=== PATIENT | male | born 1990 | race Caucasian/White ===

== ENCOUNTER 2023-07-15 07:51 | Outpatient (CLI) | payer OTHER, SELFPAY ==
--- NOTE | ~2023-07-15 | US_ITS ---
US abdomen limited DATE: 07/15/2023 08:18 INDICATION: Elevated liver function tests TECHNIQUE: Real-time imaging of the liver, pancreas, gallbladder COMPARISON: None FINDINGS: No hepatic space-occupying mass lesion. Normal hepatopedal portal venous flow direction. The pancreas is not well demonstrated. No gallstones or gallbladder wall thickening. Negative sonographic Guajardo's sign. The common bile hugo t measures 3.9 mm, normal. IMPRESSION: No significant abnormality the liver or gallbladder Pancreas is not well demonstrated Reviewed, dictated and finalized at Location A. Reviewed, dictated and finalized at location A.
== END 2023-07-15 07:52 ==
PROVIDERS: PCP Internal Medicine; Visit Provider Internal Medicine
DX: Z78.9 Other specified health status (principal); R94.5 Abnormal results of liver function studies
CPT/HCPCS: 76705

== ENCOUNTER 2024-11-17 13:49 | Emergency (ER) | payer OTHER, SELFPAY ==
--- OUTSIDE RECORDS SUMMARY | 2024-05-03 05:00 | XMS_ITS ---
Author Organization [facility] Address [facility] [address] Care Team Providers Care Superintendent Board Mill Name Role Phone Adela Michelle MD Primary Care Provider Maye Sanchez Unavailable [phone] REASON FOR VISIT left message to cancel appt 05/01/2024 Social History Sex Assigned At : Social History Observation Description Sex Assigned At Male Encounters Encounter Location Date Provider Diagnosis [facility] [employer] [place] [address] [facility] [address] [place] [address] 05/03/2024 Maye Bartlett Plan Of Treatment No Information Progress Notes * MIGUEL HAYES PDOB:1990 (33 yo M)Acc No.[id number]:05/03/2024 Patient: MIGUEL DALE Provider: JAUN BEAVERS :1990 A ge:33 Y S ex:Male Date:05/03/2024 [facility] Pcp:Adela Michelle MD Subjective: * Chief Complaints: * L eft message to cancel appt 05/01/2024 * Electronic signature of JAUN Flynn on 11/17/2024 at 01:51 PM CDT Sign off status: Pending * Provider: JAUN BEAVERS Date: 0 05/03/2024 Generated for Zee plummer/Jaime/Jordonitting on: 0 11/17/2024 01:51 PM CDT
--- OUTSIDE RECORDS SUMMARY | 2024-11-17 13:51 | XMS_ITS | Encounter Summary ---
Author Organization [facility] Address [facility] [place] [address] Care Team Providers Care Search Engine Optimization Analyst Name Role Phone Adela Michelle MD Primary Care Provider [phone] Encounter Details Date Type Department Care Team (Latest Contact Info) Description 07/11/2023 MyChart Message Enc [facility] Medical Group Multispecialty Care - [place] [address] [address] [place] [address] Adela Michelle MD [address] [place] [address] [address] [place], [place] [id number] Refill on wixela 500mlg Social History Tobacco Use Types Packs/Day Years Used Date Smoking Tobacco: Former Cigarettes 2 - 2011 Electronic Cigarettes Salvatore t: 07/20/2020 Smokeless Tobacco: Never Comments:Social smoker in [facility], pt stopped e-cigs July 2020; counseled by Dr Michelle Alcohol Use Standard Drinks/Week Comments Yes 16.7 (1 standard drink = 0.6 oz pure alcohol) PHQ-2 Answer Date Recorded Patient Health Questionnaire-2 Score 3 06/30/2023 Sex and Gender Information Value Date Recorded Sex Assigned at Male 06/14/2024 10:33 AM CDT Legal Sex Male 7:46 PM CDT Gender Identity Male 06/14/2024 10:33 AM CDT Sexual Orientation Straight 07/26/2024 1: 43 PM CDT documented as of this encounter Plan of Treatment Upcoming Encounters Date Type Department Care Team (Latest Contact Info) Description 2024 7:30 AM CDT Hospital En[facility] [place] [place] [address] Rico Roca MD [address] [place] [address] 2024 7:30 AM CDT - 2024 8:[address] [facility] [place] [address] Rico Roca MD [address] [place] [address] right endoscopic carpal tunnel release. 12/20/2024 9:40 AM CDT Office Visit [facility] Medical Group Orthopedic & Sports Medicine - [place] [address] [place] [address] Joselito Alfaro NP [address] [place] [address] 12/20/2024 1:00 PM CDT Office Visit [facility] Medical Group Multispecialty Care [place] [address] [address] [place] [address] Adela Michelle MD [address] [place] [address] Scheduled Procedures Name Priority Associated Diagnoses Date/Ti me RELEASE CARPAL TUNNEL ENDOSCOPIC Carpal tunnel syndrome on right 2024 7:30 AM CDT documented as of this encounter Visit Diagnoses Not on filedocumented in this encounter Additional Health Concerns Infection Onset Date Last Indicated Resolved Time COVID-19 Rule Out 11/10/2023 11/10/2023 11/10/2023 8:37 AM CDT Assessment Noted Time PHQ-9 Depression Total Score: 14 06/29/2 024 11:41 AM CDT documented as of this encounter Care Teams Search Engine Optimization Analyst Relationship Specialty Start Date End Date Adela Michelle MD [address] [address] PCP - General INTERNAL MEDICINE 02/02/21 documented as of this encounter
--- OUTSIDE RECORDS SUMMARY | 2024-11-17 13:51 | XMS_ITS | Encounter Summary ---
Author Organization [facility] Address [address] [place] [address] Care Team Providers Care Front Office Java Developer Name Role Phone Lynne Paris NP Primary Care Provider Adela Cisneros MD Primary Care Provider [phone] Encounter Details Date Type Department Care Team (Late st Contact Info) Description 05/20/2020 Neituit Message Enc [facility] Medical Group Multispecialty Care [address] [place] [address] Lynne Paris, MIRTA RE: Question Social History Tobacco Use Types Packs/Day Years Used Date Smoking Tobacco: Some Days Electronic Cigarettes Smokeless Tobacco: Never Comments:uses e cigs rarley Alcohol Use Standard Drinks/Week Comments Yes 6 (1 standard drink = 0.6 oz pur e alcohol) PHQ-2 Answer Date Recorded PHQ-2 Score - If the patient scores above 3, please move on to questions 3-9 1 03/06/2020 Sex and Gender Information Value Date Recorded Sex Assigned at Male 06/14/2024 10:33 AM CDT Legal Sex Male 7:46 PM CDT Gender Identity Male 06/14/2024 10:33 AM CDT Sexual Orientation Straight 07/26/2024 1: 43 PM CDT COVID-19 Exposure Response Date Recorded In the last month, have you been in contact with someone who was confirmed or suspected to have Coronavirus / COVID-19? No / Unsure 05/18/2020 9:26 AM LVN documented as of this encounter Plan of Treatment Upcoming Encounters Date Type Department Care Team (Latest Contact Info) Description 2024 7:30 AM CDT Hospital Encounter [facility] [place] [place] [address] Rico Roca MD [address] [place] [address] 2024 7:30 AM CDT - 2024 8:[address] [facility] [place] [address] Rico Roca MD [address] [place] [address] right endoscopic carpal tunnel release. 12/20/2024 9:40 AM CDT Office Visit [facility] Medical Group Orthopedic & Sports Medicine - [place] [address] [place] [address] Joselito Alfaro NP [address] [place] [address] 12/20/2024 1:00 PM CDT Office Visit [facility] Medical Group Multispecialty Care - [place] [address] [address] [place] [address] Adela Michelle MD [address] [place] [address] [address] [place] [address] Scheduled Procedures Name Priority Associated Diagnoses Date/Ti me RELEASE CARPAL TUNNEL ENDOSCOPIC Carpal tunnel syndrome on right 2024 7:30 AM CDT documented as of this encounter Visit Diagnoses Not on filedocumented in this encounter Additional Health Concerns Infection Onset Date Last Indicated Resolved Time COVID-19 Rule Out 05/18/2020 05/18/2020 05/20/2020 2:30 AM LVN COVID-19 Rule Out 02/02/2021 02/02/2021 02/02/2021 11:47 AM LVN COVID-19 Rule Out 04/05/2021 04/05/2021 04/05/2021 2:17 PM LVN COVID-19 Rule Out 04/05/2021 04/05/2021 04/07/2021 12:13 PM LVN COVID-19 Rule Out 07/06/2021 07/06/2021 07/06/2021 10:23 AM CDT COVID-19 Rule Out 10/19/2021 10/19/2021 10/19/2021 1:38 PM CDT COVID-19 Rule Out 10/19/2021 10/19/2021 10/20/2021 3:14 PM CDT COVID-19 Rule Out 11/16/2021 11/16/2021 11/16/2021 5:22 PM CDT COVID-19 Rule Out 05/16/2022 05/16/2022 05/16/2022 2:26 PM LVN COVID-19 Rule Out 11/10/2023 11/10/2023 11/10/2023 8:37 AM CDT Assessment Noted Time PHQ-9 Depression Total Score: 2 03/06/20 10:21 AM LVN documented as of this encounter Care Teams Front Office Java Developer Relationship Specialty Start Date End Date Lynne Paris NP PCP - General NURSE PRACTITIONER 03/03/20 02/01/21 Adela Michelle MD [address] [address] PCP - General INTERNAL MEDICINE 02/02/21 documented as of this encounter
--- OUTSIDE RECORDS SUMMARY | 2024-11-17 13:51 | XMS_ITS | Patient Health Record ---
Author Organization [facility] [employer] Address [address] [facility] [address] [place] [address] Care Team Providers Care Hand Heel Seat Fitter Name Role Phone Viviana KARIMI, Adela Primary Care Provider Maye Sanchez Unavailable [phone] Allergies No Known Allergies Reason For Referral No Information Medications Medication SIG (Take, Route, Frequency, Duration) Notes Start Date End Date Status Lurasidone HCl 40 MG Tablet 1 tablet in the evening with food Orally Once a day; Duration: 90 days Active FLUTICASONE 250 MCG-SALMETEROL 50 MCG/DOSE BLISTR POWDR FOR INHALATION *Reorder from [facility] for eRx and Interaction Alerts* Unknown Symbicort 80-4.5 MCG/ACT Aerosol 1 puff as needed Inhalation every 4 hrs Active Propranolol HCl 10 MG Tablet 1 tablet Oral three times daily; Duration: 90 days As needed Active Naltrexone HCl 50 MG Tablet 1 tablet Oral Once a day; Duration: 90 days Active QUEtiapine Fumarate 100 MG Tablet 1 tablet at bedtime Oral Once a day; Duration: 90 days Active Social History Tobacco Use: Social History Observation Description Date Details (start date - stop date) Never Smoker NA - NA Sex Assigned At : Social History Observation Description Sex Assigned At Male Social History Household: Social Info Question Answer Notes Household Marital status: Number of children in household: 2 children Tobacco Use: Social Info Question Answer Notes Tobacco Control (Standard) Tobacco use: Nonsmoker Additional Details Category Social Info Options Details Migrated Social History Migrated Social History Tobacco Years: Former smoker 06/07/2023 Problems Problem Type SNOMED Code ICD Code Onset Dates Problem Status W/U Status Risk Notes Problem Information temporarily unavailable Bipolar 2 disorder (F31.81) Active confirmed Problem Information temporarily unavailable CHRISTINA (generalized anxiety disorder) (F41.1) Active confirmed Problem Information temporarily unavailable Uncomplicated alcohol dependence (F10.20) Active confirmed Encounters Encounter Location Date Provider Diagnosis [facility] [address] [address] 12/15/2023 Maye Bartlett Bipolar 2 disorder F31.81 ; CHRISTINA (generalized anxiety disorder) F41.1 and Uncomplicated alcohol dependence F10.20 [place] [address] [address] 01/12/2024 Maye Bartlett [place] [address] [address] 01/19/2024 Maye Bartlett Bipolar 2 disorder F31.81 ; CHRISTINA (generalized anxiety disorder) F41.1 and Uncomplicated alcohol dependence F10.20 [place] [address] [facility] [address] [address] 12/15/2023 Maye Bartlett Assessments Encounter Date Diagnosis (ICD Code) Assessment Notes Treatment Notes Treatment Clinical Notes Section Notes 12/15/2023 Bipolar 2 disorder (ICD-10 - F31.81) 01/19/2024 Bipolar 2 disorder (ICD-10 - F31.81) Second generation antipsychotics (SGAs) have metabolic syndrome issues with weight gain, increase in prolactin, increased waist circumference, increased lipids, and increased glucose. Thus routine monitoring of weight, metabolic labs, etc. is indicated. A general rank ordering of antipsychotics that have the greatest to the least risk of metabolic effects is olanzapine, quetiapine, risperidone, ziprasidone, and aripiprazole. However, weight gain can occur with all of these drugs and considerable variability exists among patients receiving the same drug regarding the risk of metabolic effects. Anti-psychotic agents not only increase the risk of metabolic disorder, they also increase the risk of CVA, akathisia, and movement disorders including EPS or tardive dyskinesia (more common with first generation antipsychotics) and more. 01/19/2024 CHRISTINA (generalized anxiety disorder) (ICD-10 - F41.1) 12/15/2023 CHRISTINA (generalized anxiety disorder) (ICD-10 - F41.1) 12/15/2023 Uncomplicated alcohol dependence (ICD-10 - F10.20) 01/19/2024 Uncomplicated alcohol dependence (ICD-10 - F10.20) 12/15/2023 Other Increase lurasidone to 40mg daily for mood. Patient educated on all medications including potential benefits, side effects, risks. Educated on proper dosing schedule and importance of compliance. 01/19/2024 Other Stable, continue current medications. Refills sent in. Patient educated on all medications including potential benefits, side effects, risks. Educated on proper dosing schedule and importance of compliance. Plan Of Treatment No Information Insurance Providers Payer Name Payer Address Payer Phone Subscriber Number Group Number Insured Name Patient Relationship to Insured Coverage Start Date Coverage End Date [facility] [address] [place] [address] [id number] MIGUEL HAYES Self - patient is the insured Medical (General) History Medical History History ICD Code Past Psychiatric History: An xiety Disorder,Major Depressive Episode,Bipolar Disorder abdominal aortic aneurysm: No atrial fibrillation: No chronic fatigue syndrome: No essential tremor: No hyperlipidemia: No hypertension: No Parkinson's disease: No restless leg syndrome: No stroke: No subdural hematoma: No type 1 diabetes mellitus: No type 2 diabetes mellitus: No vitamin B12 deficiency: No vitamin D deficiency: No
--- OUTSIDE RECORDS SUMMARY | 2024-11-17 13:51 | XMS_ITS | Clinical Summary ---
Author Organization [facility] Address [address] [place] [address] Phone Care Team Providers Care Solar Sales Associate Name Role Phone Unavailable Primary Care Provider Unavailabl e Allergies No known active allergies Medications albuterol sulfate 90 mcg/actuation metered powder inhaler Take 180 mcg by inhalation every 4 hours. Active esomeprazole (NexIUM) 20 mg Capsule, Delayed Release(E.C.) Take 20 mg by mouth daily before breakfast. Active fluticasone propion-salmete roL (ADVAIR DISKUS,WIXELA INHUB) 500-50 mcg/dose disk inhaler Take 1 Puff by inhalation 2 times daily. 4 Active levalbuterol HFA (XOPENEX HFA) 45 mcg/Actuation HFA Aerosol Inhaler Take 2 Puffs by inhalation every 6 hours as needed. 4 Active lurasidone (Latuda) 20 mg Tablet tablet Take 20 mg by mouth daily with supper. 4 Active naltrexone (DEPADE) 50 mg tablet Take 50 mg by mouth daily. 4 Active omeprazole (PriLOSEC) 20 mg Capsule, Delayed Release(E.C.) Take 20 mg by mouth daily. 0 Active propranoloL (INDERAL) 10 mg tablet Take 10 mg by mouth 3 times daily. 3 Active QUEtiapine (SEROquel) 100 mg tablet Take 100 mg by mouth daily at bedtime. 3 Active montelukast (SINGULAIR) 10 mg tablet Take 1 Tablet (10 mg) by mouth daily at bedtime. NEEDS APPT for future refills 90 Tablet 1 Active Active Problems No known active problems Encounters Date Type Department Care Team Description 11/05/2024 External Device Data [facility] Provider, Abstract 10/23/2024 External Device Data [facility] Provider, Abstract 09/17/2024 External Device Data [facility] Provider, Abstract from Last 3 Months Social History Tobacco Use Types Packs/Day Years Used Date Smoking Tobacco: Former Cigarettes Sex and Gender Information Value Date Recorded Sex Assigned at Not on file Legal Sex Male 8:28 AM CLINICAL REHABILITATION LIAISON Gender Identity Not on file Sexual Orientation Not on file Last Filed Vital Signs Vital Sign Reading Time Taken Comments Blood Pressure 124/80 10/09/2023 3:24 PM CDT Pulse 82 10/09/2023 3:24 PM CDT Temperature - - Respiratory Rate - - Oxygen Saturation 97% 10/09/2023 3:24 PM CDT Inhaled Oxygen Concentration - - Weight 103.8 kg (228 lb 12.8 oz) 10/09/2023 3:24 PM CDT Height 182.9 cm (6') 10/09/2023 3:24 PM CDT Body Mass Index 31.03 10/09/2023 3:24 PM CDT Plan of Treatment Health Maintenance Due Date Last Done Comments HPV VACCINES (1 - 3-dose SCD M series) 12/14/2015 INFLUENZA VACCINE (#1) 2024 03/06/2020, 2018 DTAP/TDAP/TD VACCINES (7 - T d or Tdap) 09/04/2030 09/04/2020, 10/27/2003, 11/15/1994, Additional history exists HEPATITIS B VACCINES Completed 05/11/2000, 12/01/1998, 09/26/1998 Insurance [facility] [id number] Member Subscriber Plan / Payer (Ef fective 2023-Present) Name:Paxton Hubbard Relation to Subscriber:Self Name:Paxton Hubbard Payer ID:[id number] (NAIC) Type:HMO Address: [facility] [id number] [place] [id number]
--- OUTSIDE RECORDS SUMMARY | 2024-11-17 13:51 | XMS_ITS | Encounter Summary ---
Author Organization [facility] Address [address] [place] [address] Care Team Providers Care Tool Crib Manager Name Role Phone Adela Michelle MD Primary Care Provider [phone] Encounter Details Date Type Department Care Team (Late Contact Info) Description 09/14/2022 MyChart Message Enc [facility] Medical Group - [facility] [address] [place], [place] [address] [facility], [facility] Provider Air Quality Message Social History Tobacco Use Types Packs/Day Years Used Date Smoking Tobacco: Former Cigarettes 2 - 2011 Electronic Cigarettes Salvatore t: 07/20/2020 Smokeless Tobacco: Never Comments:Social smoker in [facility], pt stopped e-cigs July 2020; counseled by Dr Michelle Alcohol Use Standard Drinks/Week Comments Yes 6 (1 standard drink = 0.6 oz pur e alcohol) PHQ-2 Answer Date Recorded Patient Health Questionnaire-2 Score 2 07/15/2022 Sex and Gender Information Value Date Recorded Sex Assigned at Male 06/14/2024 10:33 AM CDT Legal Sex Male 7:46 PM CDT Gender Identity Male 06/14/2024 10:33 AM CDT Sexual Orientation Straight 07/26/2024 1: 43 PM CDT documented as of this encounter Plan of Treatment Upcoming Encounters Date Type Department Care Team (Latest Contact Info) Description 2024 7:30 AM CDT Hospital Encounter [facility] [place] [address] Rico Roca MD [address] [place] [address] 2024 7:30 AM CDT - 2024 8:34 AM CDT Surgery [facility] [place] [address] Rico Roca MD [address] [place] [address] right endoscopic carpal tunnel release. 12/20/2024 9:40 AM CDT Office Visit [facility] Medical Group Orthopedic & Sports Medicine - [place] [address] [place] [address] Joselito Alfaro NP [address] [place] [address] 12/20/2024 1:00 PM CDT Office Visit [facility] Medical Group Multispecialty Care - [place] [address] [address] [place] [address] Adela Michelle MD [address] [place] [address] Scheduled Procedures Name Priority Associated Diagnoses Date/Ti me RELEASE CARPAL TUNNEL ENDOSCOPIC Carpal tunnel syndrome on right 2024 7:30 AM CDT documented as of this encounter Visit Diagnoses Not on filedocumented in this encounter Additional Health Concerns Infection Onset Date Last Indicated Resolved Time COVID-19 Rule Out 11/10/2023 11/10/2023 11/10/2023 8:37 AM CDT Assessment Noted Time PHQ-9 Depression Total Score: 2 04/23/19 22 10:21 AM REGISTERED LAND SURVEYOR documented as of this encounter Care Teams Tool Crib Manager Relationship Specialty Start Date End Date Adela Michelle MD [address] [place] [address] PCP - General INTERNAL MEDICINE 02/02/21 documented as of this encounter
--- OUTSIDE RECORDS SUMMARY | 2024-11-17 13:51 | XMS_ITS | Encounter Summary ---
Author Organization [facility] Address [address] [place] [address] Care Team Providers Care Director Of Cloud Services Name Role Phone Adela Michelle MD Primary Care Provider [phone] Encounter Details Date Type Department Care Team (Latest Contact Info) Description 06/21/2021 MyChart Message Enc [facility] Medical Group Multispecialty Care - [place] [address] [address] [place] [address] Adela Michelle MD [address] [place] [address] [address] [place], [place] [id number] follow up visit needed Social History Tobacco Use Types Packs/Day Years Used Date Smoking Tobacco: Former Electronic Cigarettes Quit: 07/20/2020 Smokeless Tobacco: Never Comments:pt stopped July 2020 ; counseled by Dr Michelle Alcohol Use Standard Drinks/Week Comments Yes 6 (1 standard drink = 0.6 oz pur e alcohol) PHQ-2 Answer Date Recorded PHQ-2 Score - If the patient scores above 3, please move on to questions 3-9 2 04/23/2021 Sex and Gender Information Value Date Recorded [...] Encounter [facility] [place] [address] Rico Roca MD [address] [place] [address] 2024 7:30 AM CDT - 2024 8:[address] [place] [address] Rico Roca MD [address] [place] [address] right endoscopic carpal tunnel release. 12/20/2024 9:40 AM CDT Office Visit [facility] Medical Group Orthopedic & Sports Medicine - [place] [address] [place] [address] Joselito Alfaro NP [address] [place] [address] 12/20/2024 1:00 PM CDT Office Visit [facility] Medical Group Multispecialty Care - [place] [address] [address] [place] [address] Adela Michelle MD [address] [place] [address] Scheduled Procedures Name Priority Associated Diagnoses Date/Ti me RELEASE CARPAL TUNNEL ENDOSCOPIC Carpal tunnel syndrome on right 2024 7:30 AM CDT documented as of this encounter Visit Diagnoses Not on filedocumented in this encounter Additional Health Concerns Infection Onset Date Last Indicated Resolved Time COVID-19 Rule Out 07/06/2021 07/06/2021 07/06/2021 10:23 AM CDT COVID-19 Rule Out 10/19/2021 10/19/2021 10/19/2021 1:38 PM CDT COVID-19 Rule Out 10/19/2021 10/19/2021 10/20/2021 3:14 PM CDT COVID-19 Rule Out 11/16/2021 11/16/2021 11/16/2021 5:22 PM CDT COVID-19 Rule Out 05/16/2022 05/16/2022 05/16/2022 2:26 PM RECOVERY ROOM RN COVID-19 Rule Out 11/10/2023 11/10/2023 11/10/2023 8:37 AM CDT Assessment Noted Time PHQ-9 Depression Total Score: 2 04/23/19 22 10:21 AM RECOVERY ROOM RN documented as of this encounter Care Teams Director Of Cloud Services Relationship Specialty Start Date End Date Adela Michelle MD [facility] [address] [address] PCP - General INTERNAL MEDICINE 02/02/21 documented as of this encounter
--- OUTSIDE RECORDS SUMMARY | 2024-11-17 13:51 | XMS_ITS | Encounter Summary ---
Author Organization [facility] Address [facility]ly [facility]6 [place] [address] Care Team Providers Care Clinical Data Research Name Role Phone Adela Michelle MD Primary Care Provider [phone] Encounter Details Date Type Department Care Team (Latest Contact Info) Description 05/09/2023 MyCSearchspacet Message Enc [facility] Medical Group Multispecialty Care - [place] [address] [address] [address] [place], [place] [id number] Adela Michelle MD [address] [place] [address] 157 [place], [place] [id number] Pulmonary referral Social History Tobacco Use Types Packs/Day Years Used Date Smoking Tobacco: Former Cigarettes 2 - 2011 Electronic Cigarettes Salvatore t: 07/20/2020 Smokeless Tobacco: Never Comments:Social smoker in [facility], pt stopped e-cigs July 2020; counseled by Dr Michelle Alcohol Use Standard Drinks/Week Comments Yes 16.7 (1 standard drink = 0.6 oz pure alcohol) PHQ-2 Answer Date Recorded Patient Health Questionnaire-2 Score 2 03/24/2023 Sex and Gender Information Value Date Recorded Sex Assigned at Male 06/14/2024 10:33 AM CDT Legal Sex Male 7:46 PM CDT Gender Identity Male 06/14/2024 10:33 AM CDT Sexual Orientation Straight 07/26/2024 1: 43 PM CDT documented as of this encounter Progress Notes * Mariluz Morgan NP - 05/09/2023 1:31 PM CST Ok to order referral under asthma under Dr. Michelle. Thanks WALK ROPE MAKER documented in this encounter Plan of Treatment Upcoming Encounters Date Type Department Care Team (Latest Contact Info) Description 2024 7:30 AM CDT Hospital Encounter [facility] [place] [address] Rico Roca MD [address] [place] [address] 2024 7:30 AM CDT - 2024 8:34 AM CDT Surgery [facility] [place] [address] Rico Roca MD [address] [place] [address] right endoscopic carpal tunnel release. 12/20/2024 9:40 AM CDT Office Visit [facility] Medical [facility] Orthopedic & Sports Medicine - [place] [address] [place] [address] Joselito Alfaro NP 670 [place] [address] 12/20/2024 1:00 PM CDT Office Visit [facility] Medical Group Multispecialty Care - [place] [address] [address] [address] [place] [address] [place] [address] [place] [address] 157 [place] [address] Scheduled Procedures Name Priority Associated Diagnoses Date/Ti me RELEASE CARPAL TUNNEL ENDOSCOPIC Carpal tunnel syndrome on right 2024 7:30 AM CDT documented as of this encounter Visit Diagnoses Not on filedocumented in this encounter Additional Health Concerns Infection Onset Date Last Indicated Resolved Time COVID-19 Rule Out 11/10/2023 11/10/2023 11/10/2023 8:37 AM CDT Assessment Noted Time PHQ-9 Depression Total Score: 6 03/24/19 24 3:55 PM ROPEWALK ROPE MAKER documented as of this encounter Care Teams Clinical Data Research Relationship Specialty Start Date End Date Adela Michelle MD [address] [address] PCP - General INTERNAL MEDICINE 02/02/21 documented as of this encounter
--- OUTSIDE RECORDS SUMMARY | 2024-11-17 13:51 | XMS_ITS | Encounter Summary ---
Author Organization [facility] Address [facility]6 [place] [address] Care Team Providers Care Elevators Inspector Name Role Phone Adela Michelle MD Primary Care Provider [phone] Encounter Details Date Type Department Care Team (Late st Contact Info) Description 10/19/2021 Ubooly Message Enc [facility] Medical Group Multispecialty Care - [address] [place] [address] [facility] Provider Work Note Social History Tobacco Use Types Packs/Day Years [...] Exposure Response Date Recorded In the last 10 days, have yo u been in contact with someone who was confirmed or suspected to have Coronavirus/COVID-19? No / Unsure 10/19/2021 12:53 PM CDT documented as of this encounter Plan of Treatment Upcoming Encounters Date Type Department Care Team (Latest Contact Info) Description 2024 7:30 AM CDT Hospital Encounter [facility] [place] [address] Rico Roca MD [address] [place] [address] 2024 7:30 AM CDT - 2024 8:[address] [place] [address] Rico Roca MD [address] [place] [address] right endoscopic carpal tunnel release. 12/20/2024 9:40 AM CDT Office Visit [facility] Medical Group Orthopedic & Sports Medicine - [place] [address] [place] [address] Joselito Alfaro NP [address] [place] [address] 12/20/2024 1:00 PM CDT Office Visit [facility] Medical Group Multispecialty Care - [place] [address] [address] [address] [place] [address] Adela Michelle MD [address] [place] [address] Scheduled Procedures Name Priority Associated Diagnoses Date/Ti me RELEASE CARPAL TUNNEL ENDOSCOPIC Carpal tunnel syndrome on right 2024 7:30 AM CDT documented as of this encounter Visit Diagnoses Not on filedocumented in this encounter Additional Health Concerns Infection Onset Date Last Indicated Resolved Time COVID-19 Rule Out 10/19/2021 10/19/2021 10/19/2021 1:38 PM CDT COVID-19 Rule Out 10/19/2021 10/19/2021 10/20/2021 3:14 PM CDT COVID-19 Rule Out 11/16/2021 11/16/2021 11/16/2021 5:22 PM CDT COVID-19 Rule Out 05/16/2022 05/16/2022 05/16/2022 2:26 PM TURBINE INSPECTOR COVID-19 Rule Out 11/10/2023 11/10/2023 11/10/2023 8:37 AM CDT Assessment Noted Time PHQ-9 Depression Total Score: 2 04/23/19 22 10:21 AM TURBINE INSPECTOR documented as of this encounter Care Teams Elevators Inspector Relationship Specialty Start Date End Date Adela Michelle MD [address] [address] PCP - General INTERNAL MEDICINE 02/02/21 documented as of this encounter
--- OUTSIDE RECORDS SUMMARY | 2024-11-17 13:51 | XMS_ITS | Encounter Summary ---
Author Organization [facility] Address [address] [place] [address] Care Team Providers Care Linotype Mechanic Name Role Phone Lynne Paris NP Primary Care Provider Adela Cisneros MD Primary Care Provider [phone] Encounter Details Date Type Department Care Team (Latest Contact Info) Description 07/30/2020 Hoopla Message Enc [facility] Medical Group Multispecialty [address] [place] [address] Lynne Paris, MIRTA RE: Follow Up/Update Social History Tobacco Use Types Packs/Day Years [...] Description 2024 7:30 AM CDT Hospital Encounter [facility] [place] [address] Rico Roca MD [address] [place] [address] 2024 7:30 AM CDT - 2024 8:34 AM CDT Surgery [facility] [place] [address] Rico Roca MD [address] [place] [address] right endoscopic carpal tunnel release. 12/20/2024 9:40 AM CDT Office Visit [facility] Medical Group Orthopedic & Sports Medicine - [place] [address] [place] [address] Joselito Alfaro NP [address] [place] [address] 12/20/2024 1:00 PM CDT Office Visit [facility] Medical Group Multispecialty Care - [place] [address] [address] [address] [place] [address] Adela Michelle MD [address] [place] [address] 157 [place] [address] Scheduled Procedures Name Priority Associated Diagnoses Date/Ti me RELEASE CARPAL TUNNEL ENDOSCOPIC Carpal tunnel syndrome on right 2024 7:30 AM CDT documented as of this encounter Visit Diagnoses Not on filedocumented in this encounter Additional Health Concerns Infection Onset Date Last Indicated Resolved Time COVID-19 Rule Out 02/02/2021 02/02/2021 02/02/2021 11:47 AM PROFESSOR OF MECHANICAL ENGINEERING COVID-19 Rule Out 04/05/2021 04/05/2021 04/05/2021 2:17 PM PROFESSOR OF MECHANICAL ENGINEERING COVID-19 Rule Out 04/05/2021 04/05/2021 04/07/2021 12:13 PM PROFESSOR OF MECHANICAL ENGINEERING COVID-19 Rule Out 07/06/2021 07/06/202107/06/2021 10:23 AM CDT COVID-19 Rule Out 10/19/2021 10/19/2021 10/19/2021 1:38 PM CDT COVID-19 Rule Out 10/19/2021 10/19/2021 10/20/2021 3:14 PM CDT COVID-19 Rule Out 11/16/2021 11/16/2021 11/16/2021 5:22 PM CDT COVID-19 Rule Out 05/16/2022 05/16/2022 05/16/2022 2:26 PM PROFESSOR OF MECHANICAL ENGINEERING COVID-19 Rule Out 11/10/2023 11/10/2023 11/10/2023 8:37 AM CDT Assessment Noted Time PHQ-9 Depression Total Score: 2 03/06/20 20 10:21 AM PROFESSOR OF MECHANICAL ENGINEERING documented as of this encounter Care Teams Linotype Mechanic Relationship Specialty Start Date End Date Lynne Paris STATISTICS TEACHER PCP - General NURSE PRACTITIONER 03/03/20 02/01/21 Adela Michelle MD [address] [address] PCP - General INTERNAL MEDICINE 02/02/21 documented as of this encounter
--- OUTSIDE RECORDS SUMMARY | 2024-11-17 13:51 | XMS_ITS | Encounter Summary ---
Author Organization [facility] Address Formerly [facility]6 [place] [address] Care Team Providers Care Women'S Ministry Director Name Role Phone Adela Michelle MD Primary Care Provider [phone] Encounter Details Date Type Department Care Team (Late st Contact Info) Description 12/06/2023 MyChart Message Enc [facility] Medical Group Multispecialty Care - [place] [address] [address] [address] [place] [address] Adela Michelle MD [address] [place] [address] 157 [place], [place] [phone] Sinus infection Social History Tobacco Use Types Packs/Day Years Used Date Smoking Tobacco: Former Cigarettes 2 - 2011 Electronic Cigarettes Salvatore t: 07/20/2020 Smokeless Tobacco: Never Comments:Social smoker in [facility], pt stopped e-cigs July 2020; [...] Description 2024 7:30 AM CDT Hospital Encounter [facility] [place] [address] Rico Roca MD [address] [place] [address] 2024 7:30 AM CDT - 2024 8:[address] [place] [address] Rico Roca MD [address] [place] [address] right endoscopic carpal tunnel release. 12/20/2024 9:40 AM CDT Office Visit [facility] Medical Group Orthopedic & Sports Medicine - [place] [address] [place] [address] Joselito Alfaro NP [address]70 [place] [address] 12/20/2024 1:00 PM CDT Office Visit [facility] Medical Group Multispecialty Care - [place] [address] [address] [address] [place] [address] Adela Michelle MD [address] [place] [address] Scheduled Procedures Name Priority Associated Diagnoses Date/Ti me RELEASE CARPAL TUNNEL ENDOSCOPIC Carpal tunnel syndrome on right 2024 7:30 AM CDT documented as of this encounter Visit Diagnoses Not on filedocumented in this encounter Additional Health Concerns Assessment Noted Time PHQ-9 Depression Total Score: 14 04/2 024 11:41 AM CDT documented as of this encounter Care Teams Women'S Ministry Director Relationship Specialty Start Date End Date Adela Michelle MD [address] [place] [address] PCP - General INTERNAL MEDICINE 02/02/21 documented as of this encounter
--- OUTSIDE RECORDS SUMMARY | 2024-11-17 13:51 | XMS_ITS | Encounter Summary ---
Author Organization [facility] Address [facility]6 [place] [address] Care Team Providers Care Building Custodial Supervisor Name Role Phone Adela Michelle MD Primary Care Provider [phone] Encounter Details Date Type Department Care Team ([facility] st Contact Info) Description 11/09/2023 MyChart Message Enc [facility] Medical Group Multispecialty Care - [place] [address] [address] [address] [place] [address] Adela Michelle MD [address] [place] [address] 157 [place], [place] [phone] Sore throat Social History Tobacco Use Types Packs/Day Years Used Date Smoking Tobacco: Former Cigarettes 2 - 2011 Electronic Cigarettes Salvatore t: 07/20/2020 Smokeless Tobacco: Never Comments:Social smoker in [facility], pt stopped e-cigs July 2020; counseled by [...] Encounter [facility] [place] [address] Rico Roca MD [address] [place] [address] 2024 7:30 AM CDT - 2024 8:[address] [facility] [place] [address] Rico Roca MD [address] [place] [address] right endoscopic carpal tunnel release. 12/20/2024 9:40 AM CDT Office Visit [facility] Medical Group Orthopedic & Sports Medicine - [place] [address] [place] [address] Joselito Alfaro NP [address]70 [place] [address] 12/20/2024 1:00 PM CDT Office Visit [facility] Medical Group Multispecialty Care - [place] [address] [address] [address] [place] [address] Adela Michelle MD [address] [place] [address] 157 [place] [address] Scheduled Procedures Name Priority Associated Diagnoses Date/Ti [...] documented as of this encounter Care Teams Building Custodial Supervisor Relationship Specialty Start Date End Date Naate, Nueki, MD [address] [address] PCP - General INTERNAL MEDICINE 02/02/21 documented as of this encounter
--- OUTSIDE RECORDS SUMMARY | 2024-11-17 13:51 | XMS_ITS | Encounter Summary ---
Author Organization [facility] Address [address] [place] [address] Care Team Providers Care Transfer Worker Name Role Phone Adela Michelle MD Primary Care Provider [phone] Encounter Details Date Type Department Care Team (Late st Contact Info) Description 04/26/2021 MyChart Message Enc [facility] Medical Group Multispecialty Care - [place] [address] [address] [address] [place] [address] Adela Michelle MD [address] [place] [address] 157 [place], [place] [phone] lab result Social History Tobacco Use Types Packs/Day Years [...] suspected to have Coronavirus/COVID-19? No / Unsure 04/22/2021 10:06 AM MANAGING CONSULTANT CLINICAL PROFESSOR documented as of this encounter Plan of Treatment Upcoming Encounters Date Type Department Care Team (Latest Contact Info) Description 2024 7:30 AM CDT Hospital Encounter [facility] One [place] [address] Rico Roca MD [address] [place] [address] 2024 7:30 AM CDT - 2024 8:[address] [facility] [place] [address] Rico Roca MD [address] [place] [address] right endoscopic carpal tunnel release. 12/20/2024 9:40 AM CDT Office Visit [facility] Medical Group Orthopedic & Sports Medicine - [place] [address] [place] [address] Joselito Alfaro NP [address] [place] [address] 12/20/2024 1:00 PM CDT Office Visit [facility] Medical Group Multispecialty Care - [place] [address] [address] [address] [place] [address] [place] [address] [place] [address] 157 [place] [address] Scheduled Procedures Name Priority Associated Diagnoses Date/Ti me RELEASE CARPAL TUNNEL ENDOSCOPIC Carpal tunnel syndrome on right 2024 7:30 AM CDT documented as of this encounter Visit Diagnoses Not on filedocumented in this encounter Additional Health Concerns Infection Onset Date Last Indicated Resolved Time COVID-19 Rule Out 07/06/2021 07/06/202107/06/2021 10:23 AM CDT COVID-19 Rule Out 10/19/2021 10/19/2021 10/19/2021 1:38 PM CDT COVID-19 Rule Out 10/19/2021 10/19/2021 10/20/2021 3:14 PM CDT COVID-19 Rule Out 11/16/2021 11/16/2021 11/16/2021 5:22 PM CDT COVID-19 Rule Out 05/16/2022 05/16/2022 05/16/2022 2:26 PM MANAGING CONSULTANT CLINICAL PROFESSOR COVID-19 Rule Out 11/10/2023 11/10/2023 11/10/2023 8:37 AM CDT Assessment Noted Time PHQ-9 Depression Total Score: 2 04/23/19 22 10:21 AM MANAGING CONSULTANT CLINICAL PROFESSOR documented as of this encounter Care Teams Transfer Worker Relationship Specialty Start Date End Date Adela Michelle MD [address] [address] PCP - General INTERNAL MEDICINE 02/02/21 documented as of this encounter
--- OUTSIDE RECORDS SUMMARY | 2024-11-17 13:51 | XMS_ITS | Encounter Summary ---
Author Organization [facility] Address [address] [place] [address] Care Team Providers Care Equal Opportunity Assistant Name Role Phone Adela Michelle MD Primary Care Provider [phone] Encounter Details Date Type Department Care Team (Latest Contact Info) Description 03/09/2021 GuestMetricst Message Enc [facility] Medical Group Multispecialty Care - [place] [address] [address] [address] [place], [place] [phone] Adela Michelle MD [address] [place] [address] 157 [place], [place] [phone] due for your physical Social History Tobacco Use Types Packs/Day Years Used Date Smoking Tobacco: Some Days Electronic Cigarettes Smokeless Tobacco: Never Comments:uses e cigs ayden. counseled by Dr Michelle Alcohol Use Standard Drinks/Week Comments Yes 6 (1 standard drink = 0.6 oz pur e alcohol) PHQ-2 Answer Date Recorded PHQ-2 Score - If the patient scores above 3, please move on to questions 3-9 3 09/04/2020 Sex and Gender Information Value Date Recorded Sex Assigned at Male 06/14/2024 10:33 AM CDT Legal Sex Male 7:46 PM CDT Gender Identity Male 06/14/2024 10:33 AM CDT Sexual Orientation Straight 07/26/2024 1: 43 PM CDT documented as of this encounter Plan of Treatment Upcoming Encounters Date Type Department Care Team (Latest Contact Info) Description 2024 7:30 AM CDT Hospital Encounter [facility] [place] [address] Rico Roca MD [address] [place] [address] 2024 7:30 AM CDT - 2024 8:[address] [facility] [place] [address] Rico Roca MD [address] [place] [address] right endoscopic carpal tunnel release. 12/20/2024 9:40 AM CDT Office Visit [facility] Medical Group Orthopedic & Sports Medicine - [place] [address] [place] [address] Joselito Alfaro NP [address] [place] [address] 12/20/2024 1:00 PM CDT Office Visit [facility] Medical Group Multispecialty Care - [place] [address] [address] [place] [address] Adela Michelle MD [address] [place] [address] Scheduled Procedures Name Priority Associated Diagnoses Date/Ti me RELEASE CARPAL TUNNEL ENDOSCOPIC Carpal tunnel syndrome on right 2024 7:30 AM CDT documented as of this encounter Visit Diagnoses Not on filedocumented in this encounter Additional Health Concerns Infection Onset Date Last Indicated Resolved Time COVID-19 Rule Out 04/05/2021 04/05/2021 04/05/2021 2:17 PM NEWSPAPER MANAGING EDITOR COVID-19 Rule Out 04/05/2021 04/05/2021 04/07/2021 12:13 PM NEWSPAPER MANAGING EDITOR COVID-19 Rule Out 07/06/2021 07/06/202107/0607/06/2021 10:23 AM CDT COVID-19 Rule Out 10/19/2021 10/19/2021 10/19/2021 1:38 PM CDT COVID-19 Rule Out 10/19/2021 10/19/2021 10/20/2021 3:14 PM CDT COVID-19 Rule Out 11/16/2021 11/16/2021 11/16/2021 5:22 PM CDT COVID-19 Rule Out 05/16/2022 05/16/2022 05/16/2022 2:26 PM NEWSPAPER MANAGING EDITOR COVID-19 Rule Out 11/10/2023 11/10/2023 11/10/2023 8:37 AM CDT Assessment Noted Time PHQ-9 Depression Total Score: 8 09/05/19 10:18 AM CDT documented as of this encounter Care Teams Equal Opportunity Assistant Relationship Specialty Start Date End Date Adela Michelle MD [address] [address] PCP - General INTERNAL MEDICINE 02/02/21 documented as of this encounter
--- OUTSIDE RECORDS SUMMARY | 2024-11-17 13:51 | XMS_ITS | Encounter Summary ---
Author Organization [facility] Address [facility]6 [place] [address] Care Team Providers Care Ship'S Electronic Warfare Officer Name Role Phone Adela Michelle MD Primary Care Provider [phone] Encounter Details Date Type Department Care Team ([facility] Contact Info) Description 07/09/2024 MyChart Message Enc [facility] Medical Group Multispecialty Care - [place] [address] [address] [address] [place] [address] Adela Michelle MD [address] [place] [address] 157 [place], [place] [phone] Emg order Social History Tobacco Use Types Packs/Day Years Used Date Smoking Tobacco: Former Cigarettes 2 - 2011 Electronic Cigarettes Salvatore t: 07/20/2020 Smokeless Tobacco: Never Comments:Social smoker in [facility], pt stopped e-cigs July 2020; counseled by Dr Michelle Alcohol Use Standard Drinks/Week Comments Yes 6.7 (1 standard drink = 0.6 oz p ure alcohol) PHQ-2 Answer Date Recorded Patient Health Questionnaire-2 Score 2 06/14/2024 Sex and Gender Information Value Date Recorded [...] Encounter [facility] [place] [address] Rico Roca MD [address] [place] [address] 2024 7:30 AM CDT - 2024 8:[address] [facility] [place] [address] Rico Roca MD [address] [place] [address] right endoscopic carpal tunnel release. 12/20/2024 9:40 AM CDT Office Visit [facility] Medical Group Orthopedic & Sports Medicine - [place] [address] [place] [address] Joselito Alfaro NP [address] [place] [address] 12/20/2024 1:00 PM CDT Office Visit [facility] Medical Group Multispecialty Care - [place] [address] [address] [place] [address] Adela Michelle MD [facility] [address] [address] Scheduled Procedures Name Priority Associated Diagnoses Date/Ti me RELEASE CARPAL TUNNEL ENDOSCOPIC Carpal tunnel syndrome on right 2024 7:30 AM CDT documented as of this encounter Visit Diagnoses Not on filedocumented in this encounter Additional Health Concerns Assessment Noted Time PHQ-9 Depression Total Score: 7 06/15/19 25 11:06 AM CDT documented as of this encounter Care Teams Ship'S Electronic Warfare Officer Relationship Specialty Start Date End Date Adela Michelle MD [address] [place] [address] PCP - General INTERNAL MEDICINE 02/02/21 documented as of this encounter
--- OUTSIDE RECORDS SUMMARY | 2024-11-17 13:51 | XMS_ITS | Clinical Summary ---
Author Organization [facility] Address [address] [place] [address] Care Team Providers Care Instrument Shop Supervisor Name Role Phone Adela Michelle MD Primary Care Provider [phone] Allergies Active Allergy Reactions Criticality Noted Date Comments Lurasidone Other (see comment) 12/15/2023 Depression worsened. Medications naltrexone (DEPADE) 50 MG tabletIndication s:Alcohol use Take 1 tablet (50 mg total) by mouth nightly. 90 tablet 1 5 Active montelukast (SINGULAIR) 10 MG tabletIndication s:Mild intermittent asthma without complication (HHS/HCC) Take 1 tablet (10 mg total) by mouth nightly at bedtime. 90 tablet 1 5 Active levalbuterol (XOPENEX HFA) 45 MCG/ACT inhalerIndicatio ns:Mild intermittent asthma without complication (HHS/HCC) Inhale 2 puffs into the lungs every 6 (six) hours as needed for Wheezing. 15 g 6 5 Active fluticasone-salm eterol (ADVAIR DISKUS) 500-50 MCG/ACT inhalerIndicatio ns:Mild intermittent asthma without complication (HHS/HCC) Inhale 1 puff into the lungs 2 (two) times daily. 60 each 11 5 Active Additional Information Patient not taking.Reported on 11/15/2024 omeprazole (PRILOSEC) 20 MG capsuleIndicatio ns:Gastroesophag eal reflux disease without esophagitis Take 1 capsule (20 mg total) by mouth every evening. 90 capsule 1 5 Active propranolol (INDERAL) 20 MG tabletIndication s:Anxiety Take 1 tablet (20 mg total) by mouth 3 (three) times daily. 270 tablet 1 5 Active QUEtiapine (SEROQUEL) 100 MG tabletIndication s:Bipolar disorder, current episode mixed, moderate (CMS/HCC HHS/HCC) Take 1 tablet (100 mg total) by mouth nightly at bedtime. Takes total of 150 mg seroquel. 90 tablet 1 5 Active Albuterol Sulfate 108 (90 Base) MCG/ACT AEROSOL POWDER, BREATH ACTIVATED Inhale 180 mcg into the lungs. Active esomeprazole (NEXIUM) 20 MG capsule Take 1 capsule (20 mg total) by mouth daily. Active Active Problems Problem Noted Date Diagnosed Date Carpal tunnel syndrome on right 10/23/2024 Gastroesophageal reflux disease without esophagi tis 04/23/2021 Asthma (HHS/HCC) 04/23/2021 Bipolar disorder, current ep isode mixed, mild (CMS/HCC HHS/HCC) 04/23/2021 Overview (04/23/2021): On Seroquel and follows with Dr Mae every 3 months; stable but not optimally controlled. Assessment & Plan (04/23/2021 10:57 AM CHECKMAN): On Seroquel and follows with Dr Mae every 3 months; stable but not optimally controlled. Anxiety 04/23/2021 Depression 03/08/2019 Episode of recurrent major depressive disorder 1 05/09/2018 Assessment & Plan (04/23/2021 10:56 AM CHECKMAN): On Wellbutrin and Sertraline and follows with Dr Mae. Stable but not optimally controlled. Encounters Date Type Department Care Team Description 11/15/2024 9:40 AM CDT Office Visit [facility] Orth[facility] & [facility] Medicine - [place] [address] [place] [address] Joselito Alfaro, MIRTA Pre-Op Exam 11/15/2024 Travel 10/23/2024 Prep for Procedure [facility] [address] [place] [address] Rico Roca MD 10/21/2024 2:40 PM CDT Office Visit [facility] - [place] [address] [place] [address] Joselito Alfaro, CHIEF INVESTIGATOR Follow Up (EMG) 10/21/2024 Travel from Last 3 Months Immunizations Immunization Administration Dates Next Due Dtap 06/26/1989,04/17/1989,01/24/1989 Dtp 11/15/1994,01/22/1991 Fluzone 6 Months+ Quad (0.5 mL Prefilled Syringe) 03/06/2020 Hepatitis A (Generic) 05/12/1999,09/26/1998 Hepatitis B (Recombivax Hb 10 Mcg) 06/14/2024 Hepatitis B Pediatric 05/11/2000,12/01/1998,09/17 Hib (Generic) 01/22/1991 Influenza Adult (Generic) 03/08/2019 MMR 11/15/1994,04/30/1990 Opv 11/15/1994, 1,06/26/1989,1989,01/24/1989 Pneumococcal (Pneumovax 23) 11/05/2021 Pneumococcal (Prevnar 13) 03/24/2023 Polio Opv (Generic) 11/15/1994, 1,06/26/1989,1989,01/24/1989 Td 10/27/2003 Td (Tenivac) preservative free 10/27/2003 Tdap (Adacel) 09/04/2020 Varicella Vaccine 09/26/1998 Family History Medical History Relation Comments Depression Father Lung Disease Father Aneurysm Maternal Grandfather Diabetes Maternal Grandmother Relation Status Comments Father Maternal Grandfather Maternal Grandmother Social History Tobacco Use Types Packs/Day Years Used Date Smoking Tobacco: Former Cigarettes 2 - 2011 Electronic Cigarettes Salvatore t: 07/20/2020 Smokeless Tobacco: Never Tobacco Cessation:Counseling Given: No Comments:Social smoker in past, pt stopped e-cigs July 2020; counseled by [...] Orientation Straight 07/26/2024 1: 43 PM CDT Last Filed Vital Signs Vital Sign Reading Time Taken Comments Blood Pressure 127/72 11/15/2024 9:35 AM CDT Pulse 86 11/15/2024 9:35 AM CDT Temperature 36.6 C (97.9 F) 11/15/2024 9:35 AM CDT Respiratory Rate 18 07/26/2024 1:43 PM CDT Oxygen Saturation 98% 11/15/2024 9:35 AM CDT Inhaled Oxygen Concentration - - Weight 96.9 kg (213 lb 9.6 oz) 11/15/2024 9:35 A M CDT Height 182.9 cm (6') 11/15/2024 9:35 AM CDT Body Mass Index 28.97 11/15/2024 9:35 AM CDT Plan of Treatment Upcoming Encounters Date Type Department Care Team (Latest Contact Info) Description 2024 7:30 AM CDT Hospital Encounter [facility] [place] [address] Rico Roca MD [address] [place], [place] [address] 280- 2024 7:30 AM CDT - 2024 8:34 AM CDT Surgery [facility] [place] [address] Rico Roca MD [address] [place] [address] right endoscopic carpal tunnel release. 12/20/2024 9:40 AM CDT Office Visit [facility] - [place] [address] [place] [address] Joselito Alfaro NP [address] [place] [address] 12/20/2024 1:00 PM CDT Office Visit [facility] Multispecialty Care - [place] [address] [address] [place] [address] Adela Michelle MD [address] [facility] [address] [place] [address] Scheduled Procedures Name Priority Associated Diagnoses Date/Ti me RELEASE CARPAL TUNNEL ENDOSCOPIC Carpal tunnel syndrome on right 2024 7:30 AM CDT Health Maintenance Due Date Last Done Comments Kidney Health Evaluation 1988 Diabetes: Retinopathy Eye Exam 2006 HPV Vaccines (1 - 3-dose SCDM series) 12/14/2015 COVID-19 Vaccine ( - season) 2023 07/23/2020, 07/02/2020 Hemoglobin A1C 05/30/2024 12/01/2023, 04/0 08/2023, 06/02/2022, Additional history exists Annual Physical 06/29/2024 06/30/2023, 030 10/2022, 04/23/2021, Additional history exists Lipid Panel 11/30/2024 12/01/2023, 04/0 08/2023, 06/02/2022, Additional history exists DTaP, Tdap and Td Vaccines (6 - Td or Tdap) 09/04/2030 09/04/2020, 10/27/2003, 10/27/2003, Additional history exists Pneumococcal Vaccine: Pediatrics (0 to 5 Years) and At-Risk Patients (6 to 49 Years) (3 of 3 - PCV20 or PCV21) 2038 03/24/2023, 11/05/2021 Hepatitis C Completed 04/23/2021 Hepatitis B Vaccines Completed 06/14/2024, 05/11/2000, 12/01/1998, Additional history exists PHQ-2 (Physician [place]) Completed 06/14/2024 Meningococcal B Vaccine Aged Out No l onger eligible based on patient's age to complete this topic Meningococcal Vaccine Aged Out No kolby jose manuel eligible based on patient's age to complete this topic RSV Immunizations Under 20 Months Aged Out No longer eligible based on patient's age to complete this topic Goals Goal Patient Goal Type Associated Problems Recent Progress Patient-Stated? Author Autogenerat ed Goal Care Plan Autogenerated Problem No Gracie Juarez RN Medical Devices Implanted Type Area Correction Warden Device Identifier Shelf Expiration Date Model / Serial / Lot Mesh Surg Ultpro 6x3in Part Absorb Ltwt Ster - [id number] Implanted:Qty: 1 on 11/23/2017 by Tila Ferris MD at [facility] Left: Inguinal [employer] 10/16/2022 [id number] / / [id number] Procedures Procedure Name Priority Date/Time Associated Diagnosis Comments LIPID PANEL Routine 12/01/2023 8:09 AM CDT Familial hypercholesterolemia HEMOGLOBIN, GLYCOSYLATED Routine 12/01/2023 8:09 AM CDT Type 2 diabetes mellitus without complication, with long-term current use of insulin HEPATITIS C ANTIBODY Routine 04/23/2021 10:29 AM CHECKMAN Encounter for hepatitis C screening test for low risk patient from Last 3 Months or Most Recently Relevant to Health Maintenance Results * HEMOGLOBIN, GLYCOSYLATED (12/01/2023 8:09 AM CDT) HGB A1C 5.4 <5.7 % of total Hgb [facility] [place] Comment: For the purpose of screening for the presence of diabetes: <5.7% Consistent with the absence of diabetes 5.7-6.4% Consistent with increased risk for diabetes (prediabetes) > or =6.5% Consistent with diabetes This assay result is consistent with a decreased risk of diabetes. Currently, no consensus exists regarding use of hemoglobin A1c for diagnosis of diabetes in children. According to [place] Diabetes Association (ADA) guidelines, hemoglobin A1c <7.0% represents optimal control in non- diabetic patients. Different metrics may apply to specific patient populations. Standards of Medical Care in Diabetes(ADA). This test was performed on the Stefanie jaswinder c503 platform. Effective 06/05/23, a change in test platforms from the Hyatt Family Preservation Caseworker to the Stefanie jaswinder c503 may have shifted HbA1c results compared to historical results. Based on laboratory validation testing conducted at [facility], the Stefanie platform relative to the Hyatt platform had an average increase in HbA1c value of < or = 0.3%. This difference is within accepted variability established by the National Glycohemoglobin Standardization Program. Note that not all individuals will have had a shift in their results and direct comparisons between historical and current results for testing conducted on different platforms is not recommended. 12/01/2023 8:09 AM CDT 12/01/2023 8:10 AM CDT Narrative [facility] - PEDRO ORDERS - 12/02/2023 4:50 AM CDT FASTING:YES FASTING: YES Resulting Agency Comment Performing Organization Information: Site ID: Name: [facility] Address: [address] [place] [id number] Director: Candy Prieto Adela Michelle MD LABORATORY Final Result [facility] [[email or web address]] JESSIE - PEDRO ORDERS [address] [address], * (ABNORMAL) LIPID PANEL (12/01/2023 8:09 AM CDT) [facility] Signature CHOLESTEROL 163 <200 mg/dL [facility] HDL 33(L) > OR = 40 mg/dL [facility] TRIGLYCERIDES 309(H) <150 mg/dL [facility] Comment: If a non-fasting specimen was collected, consider repeat triglyceride testing on a fasting specimen if clinically indicated. Baldo et al. J. of Clin. Lipidol. 2015;9:129-169. LDL (CALCULATED) 89 mg/dL (calc) [facility] Comment: Reference range: <100 Desirable range <100 mg/dL for primary prevention; <70 mg/dL for patients with CHD or diabetic patients with > or = 2 CHD risk factors. LDL-C is now calculated using the Singh-Solomon calculation, which is a validated novel method providing better accuracy than the Friedewald equation in the estimation of LDL-C. Singh SS et al. MIGEL. 2013;310(19): 8599-3739 (http://education.[employer]/faq/ROD613) CHOL/HDL RATIO 4.9 <5.0 (calc) [facility] NON HDL CHOLESTEROL 130(H) <130 mg/dL (calc) [facility] Comment: For patients with diabetes plus 1 major ASCVD risk factor, treating to a non-HDL-C goal of <100 mg/dL (LDL-C of <70 mg/dL) is considered a therapeutic option. 12/01/2023 8:09 AM CDT 12/01/2023 8:10 AM CDT Narrative [facility] - 12/02/2023 4:50 AM CDT FASTING:YES FASTING: YES Resulting Agency Comment Performing Organization Information: Site ID: [place] Name: [facility] Address: [id number] [place] [address] [place] [address] Director: Candy Prieto MD Adela Michelle MD LABORATORY Final Result Performing Organization Address City/[facility]/ZIP Co de Phone Number [facility] [address] [facility] [place] [address], * HEPATITIS C ANTIBODY (04/23/2021 10:29 AM CHECKMAN) HEPATITIS C AB NON-REACTI VE NON-REACT HOMAR 04/23/2021 9:28 PM CHECKMAN [facility] Comment: ANTIBODIES TO HCV NOT DETECTED. DOES NOT EXCLUDE THE POSSIBILITY OF EXPOSURE TO HCV. 04/23/2021 10:2 9 AM CHECKMAN us Adela Michelle MD LABORATORY Final Result Performing Organization Address City/[facility]/ZIP Co de Phone Number [facility] [address] [place] [address], [phone] from Last 3 Months or Most Recently Relevant to Health Maintenance Additional Health Concerns Active Problems Noted Date Diagnosed Date Autogenerated Problem 10/23/2024 Insurance [facility] Care Teams Instrument Shop Supervisor Relationship Specialty Start Date End Date Adela Michelle MD [address] [address] PCP - General INTERNAL MEDICINE 02/02/21
--- OUTSIDE RECORDS SUMMARY | 2024-11-17 13:51 | XMS_ITS | Encounter Summary ---
Author Organization [facility] Address [facility] [place] [address] Care Team Providers Care Floriculture Teacher Name Role Phone Adela Michelle MD Primary Care Provider [phone] Encounter Details Date Type Department Care Team ([facility] Contact Info) Description 11/26/2023 MyChart Message Enc [facility] Medical Group Multispecialty Care - [place] [address] [address] [place] [address] Adela Michelle MD [address] [place] [address] [address] [place], [place] [phone] Upcoming visit Social History Tobacco Use Types Packs/Day Years Used Date Smoking Tobacco: Former Cigarettes 2 - 2011 Electronic Cigarettes Salvatore t: 07/20/2020 Smokeless Tobacco: Never Comments:Social smoker in [facility], pt stopped e-cigs July 2020; counseled by [...] Encounter [facility] [place] [place] [address] Rico Roca MD [address] [place] [address] 2024 7:30 AM CDT - 2024 8:[address] [place] [place] [address] Rico Roca MD [address] [place] [address] right endoscopic carpal tunnel release. 12/20/2024 9:40 AM CDT Office Visit [facility] Medical Group Orthopedic & Sports Medicine - [place] [address] [place] [address] Joselito Alfaro NP [address] [place] [address] 12/20/2024 1:00 PM CDT Office Visit [facility] Medical Group Multispecialty Care - [place] [address] [address] [place] [address] Adela Michelle MD [facility] [address] [address] Scheduled Procedures Name Priority Associated Diagnoses Date/Ti me RELEASE CARPAL TUNNEL ENDOSCOPIC Carpal tunnel syndrome on right 2024 7:30 AM CDT documented as of this encounter Visit Diagnoses Not on filedocumented in this encounter Additional Health Concerns Assessment Noted Time PHQ-9 Depression Total Score: 14 04/ 024 11:41 AM CDT documented as of this encounter Care Teams Floriculture Teacher Relationship Specialty Start Date End Date Adela Michelle MD [address] [place] [address] PCP - General INTERNAL MEDICINE 02/02/21 documented as of this encounter
--- OUTSIDE RECORDS SUMMARY | 2024-11-17 13:51 | XMS_ITS | Encounter Summary ---
Author Organization [facility] Address [facility] [place] [address] Care Team Providers Care Coal Carrier Name Role Phone Adela Michelle MD Primary Care Provider [phone] Encounter Details Date Type Department Care Team ([facility] Contact Info) Description 04/02/2024 MyChart Message Enc [facility] Multispecialty Care - [place] [address] [address] [place] [address] Adela Michelle MD [address] [place] [address] [address] [place], [place] [phone] Results from gi Social History Tobacco Use Types Packs/Day Years Used Date Smoking Tobacco: Former Cigarettes 2 - 2011 Electronic Cigarettes Salvatore t: 07/20/2020 Smokeless Tobacco: Never Comments:Social smoker in [facility], pt stopped e-cigs July 2020; counseled by Dr Michelle Alcohol Use Standard Drinks/Week Comments Yes 16.7 (1 standard drink = 0.6 oz pure alcohol) PHQ-2 Answer Date Recorded Patient Health Questionnaire-2 Score 2 12/15/2023 Sex and Gender Information Value Date Recorded [...] Encounter [facility] [place] [address] Rico Roca MD [address] [place] [address] 2024 7:30 AM CDT - 2024 8:[address] [facility] [place] [address] Rico Roca MD [address] [place] [address] right endoscopic carpal tunnel release. 12/20/2024 9:40 AM CDT Office Visit [facility] Orthopedic & Sports Medicine - [place] [address] [place] [address] Joselito Alfaro NP [address] [place] [address] 12/20/2024 1:00 PM CDT Office Visit [facility] Multispecialty Care - [place] [address] [address] [place] [address] Adela Michelle MD [facility] [address] [address] Scheduled Procedures Name Priority Associated Diagnoses Date/Ti me RELEASE CARPAL TUNNEL ENDOSCOPIC Carpal tunnel syndrome on right 2024 7:30 AM CDT documented as of this encounter Visit Diagnoses Not on filedocumented in this encounter Additional Health Concerns Assessment Noted Time PHQ-9 Depression Total Score: 6 12/15/19 24 9:45 AM CDT documented as of this encounter Care Teams Coal Carrier Relationship Specialty Start Date End Date Adela Michelle MD [address] [place] [address] PCP - General INTERNAL MEDICINE 02/02/21 documented as of this encounter
--- OUTSIDE RECORDS SUMMARY | 2024-11-17 13:51 | XMS_ITS | Encounter Summary ---
Author Organization [facility] Address [facility] [place] [address] Care Team Providers Care Pruner Name Role Phone Adela Michelle MD Primary Care Provider [phone] Encounter Details Date Type Department Care Team (Late st Contact Info) Description 10/21/2021 MyChart Message Enc [facility] Medical Group Multispecialty Care - [place] [address] [address] [place], [place] [id number] Adela Michelle MD [address] [place] [address] [address] [place], [place] [phone] Pre appt labs Social History Tobacco Use Types Packs/Day Years [...] Encounter [facility] [place] [address] Rico Roca MD [address] [place] [address] 2024 7:30 AM CDT - 2024 8:[address] [place] [address] Rico Roca MD [address] [place] [address] right endoscopic carpal tunnel release. 12/20/2024 9:40 AM CDT Office Visit [facility] Orthopedic & Sports Medicine - [place] [address] [place] [address] Joselito Alfaro NP [address] [place] [address] 12/20/2024 1:00 PM CDT Office Visit [facility] Multispecialty Care - [place] [address] [address] [place] [address] Adela Michelle MD [address] [place] [address] [address] [place] [address] Scheduled Procedures Name Priority Associated Diagnoses Date/Ti me RELEASE CARPAL TUNNEL ENDOSCOPIC Carpal tunnel syndrome on right 2024 7:30 AM CDT documented as of this encounter Visit Diagnoses Not on filedocumented in this encounter Additional Health Concerns Infection Onset Date Last Indicated Resolved Time COVID-19 Rule Out 11/16/2021 11/16/2021 11/16/2021 5:22 PM CDT COVID-19 Rule Out 05/16/2022 05/16/2022 05/16/2022 2:26 PM RPG PROGRAMMER COVID-19 Rule Out 11/10/2023 11/10/2023 11/10/2023 8:37 AM CDT Assessment Noted Time PHQ-9 Depression Total Score: 2 04/23/19 22 10:21 AM RPG PROGRAMMER documented as of this encounter Care Teams Pruner Relationship Specialty Start Date End Date Adela Michelle MD [address] [address] PCP - General INTERNAL MEDICINE 02/02/21 documented as of this encounter
--- OUTSIDE RECORDS SUMMARY | 2024-11-17 13:51 | XMS_ITS | Encounter Summary ---
Author Organization [facility] Address [facility] [place] [address] Care Team Providers Care Sewer Contractor Name Role Phone Adela Michelle MD Primary Care Provider [phone] Encounter Details Date Type Department Care Team (Late st Contact Info) Description 07/25/2023 MyChart Message Enc [facility] Medical Group Multispecialty Care - [place] [address] [address] [place] [address] Adela Michelle MD [address] [place] [address] [address] [place], [place] [phone] Magnesium lab Social History Tobacco Use Types Packs/Day Years Used Date Smoking Tobacco: Former Cigarettes 2 - 2011 Electronic Cigarettes Salvatore t: 07/20/2020 Smokeless Tobacco: Never Comments:Social smoker in [facility], pt stopped e-cigs July 2020; [...] Description 2024 7:30 AM CDT Hospital Encounter [facility] [place] [address] Rico Roca MD [address] [place] [address] 2024 7:30 AM CDT - 2024 8:[address] [place] [address] Rico Roca MD [address] [place] [address] right endoscopic carpal tunnel release. 12/20/2024 9:40 AM CDT Office Visit [facility] Orthopedic & Sports Medicine - [place] [address] [place] [address] Joselito Alfaro NP [address] [place] [address] 12/20/2024 1:00 PM CDT Office Visit [facility] Multispecialty Care - [place] [address] [address] [place] [address] Adela Michelle MD [address] [place] [address] Scheduled Procedures Name Priority Associated Diagnoses Date/Ti [...] documented as of this encounter Care Teams Sewer Contractor Relationship Specialty Start Date End Date Adela Michelle MD [address] [address] PCP - General INTERNAL MEDICINE 02/02/21 documented as of this encounter
--- OUTSIDE RECORDS SUMMARY | 2024-11-17 13:51 | XMS_ITS | Encounter Summary ---
Author Organization [facility] Address [facility]6 [place] [address] Care Team Providers Care Armature Rewinder Name Role Phone Adela Michelle MD Primary Care Provider [phone] Encounter Details Date Type Department Care Team (Late st Contact Info) Description 04/05/[address] [facility] Medical Group Multispecialty Care - [place] [address] [address] [place] [address] Adela Michelle MD [address] [place] [address] [address] [place], [place] [phone] [place], Social History Tobacco Use Types Packs/Day Years Used Date Smoking Tobacco: Former Cigarettes 2 - 2011 Electronic Cigarettes Salvatore t: 07/20/2020 Smokeless Tobacco: Never Comments:Social smoker in [facility] pt stopped e-cigs July 2020; counseled by [...] Description 2024 7:30 AM CDT Hospital Encounter [facility] [place] [address] Rico Roca MD [address] [place] [address] 2024 7:30 AM CDT - 2024 8:[address] [place] [address] Rico Roca MD [address] [place] [address] right endoscopic carpal tunnel release. 12/20/2024 9:40 AM CDT Office Visit [facility] Orthopedic & Sports Medicine - [place] [address] [place] [address] Joselito Alfaro NP [address] [place] [address] 12/20/2024 1:00 PM CDT Office Visit [facility] Multispecialty Care - [place] [address] [address] [place] [address] Adela Michelle MD [address] [place] [address] Scheduled Procedures Name Priority Associated Diagnoses Date/Ti me RELEASE CARPAL TUNNEL ENDOSCOPIC Carpal tunnel syndrome on right 2024 7:30 AM CDT documented as of this encounter Visit Diagnoses Not on filedocumented in this encounter Additional Health Concerns Infection Onset Date Last Indicated Resolved Time COVID-19 Rule Out 11/10/2023 11/10/2023 11/10/2023 8:37 AM CDT Assessment Noted Time PHQ-9 Depression Total Score: 6 03/24/19 3:55 PM RESIDENTIAL DRIVER documented as of this encounter Care Teams Armature Rewinder Relationship Specialty Start Date End Date Adela Michelle MD [address] [address] PCP - General INTERNAL MEDICINE 02/02/21 documented as of this encounter
--- OUTSIDE RECORDS SUMMARY | 2024-11-17 13:51 | XMS_ITS | Encounter Summary ---
Author Organization [facility] Address [address] [place] [address] Care Team Providers Care Fern Gatherer Name Role Phone Adela Michelle MD Primary Care Provider [phone] Encounter Details Date Type Department Care Team (Late st Contact Info) Description 06/06/2023 MyChart Message Enc [facility] Medical Group Multispecialty Care - [place] [address] [address] [place] [address] Adela Michelle MD [address] [place] [address] 157 [place], [place] [id number] Psych Social History Tobacco Use Types Packs/Day Years Used Date Smoking Tobacco: Former Cigarettes 2 - 2011 Electronic Cigarettes Salvatore t: 07/20/2020 Smokeless Tobacco: Never Comments:Social smoker in [facility], pt stopped e-cigs July 2020; counseled [...] Description 2024 7:30 AM CDT Hospital Encounter [facility] [place] [address] Rico Roca MD [address] [place] [address] 2024 7:30 AM CDT - 2024 8:[address] [place] [address] Rico Roca MD [address] [place] [address] right endoscopic carpal tunnel release. 12/20/2024 9:40 AM CDT Office Visit [facility] Medical Group Orthopedic & Sports Medicine - [address] [place] [address] Joselito Alfaro NP [address]70 [place] [address] 12/20/2024 1:00 PM CDT Office Visit [facility] Medical Group Multispecialty Care - [place] [address] [address] [place] [address] Adela Michelle MD [address] [place] [address] Scheduled Procedures Name Priority Associated Diagnoses Date/Ti [...] Depression Total Score: 6 03/24/19 3:55 PM GRAIN CLEANER AND TRANSFER OPERATOR documented as of this encounter Care Teams Fern Gatherer Relationship Specialty Start Date End Date Adela Michelle MD [address] [address] PCP - General INTERNAL MEDICINE 02/02/21 documented as of this encounter
--- OUTSIDE RECORDS SUMMARY | 2024-11-17 13:51 | XMS_ITS | Encounter Summary ---
Author Organization [facility] Address [address] [place] [address] Care Team Providers Care China And Silverware Salesperson Name Role Phone Lynne Paris NP Primary Care Provider Adela Cisneros MD Primary Care Provider [phone] Encounter Details Date Type Department Care Team (Late st Contact Info) Description 08/13/2020 Checkpoint Surgical Message Enc [facility] Medical Group Multispecialty Care [address] [place] [address] Lynne Paris, MIRTA RE: Other Social History Tobacco Use Types Packs/Day Years [...] Description 2024 7:30 AM CDT Hospital Encounter [facility] [place] [address] Rico Roca MD [address] [place] [address] 2024 7:30 AM CDT - 2024 8:34 AM CDT Surgery [facility] [place] [address] Rico Roca MD [address] [place] [address] right endoscopic carpal tunnel release. 12/20/2024 9:40 AM CDT Office Visit [facility] Medical Group Orthopedic & Sports Medicine - [place] [address] [place] [address] Joselito Alfaro NP [address] [place] [address] 12/20/2024 1:00 PM CDT Office Visit [facility] Medical Group Multispecialty Care - [place] [address] [address] [place] [address] Adela Michelle MD [address] [place] [address] 157 [place] [address] Scheduled Procedures Name Priority Associated Diagnoses Date/Ti me RELEASE CARPAL TUNNEL ENDOSCOPIC Carpal tunnel syndrome on right 2024 7:30 AM CDT documented as of this encounter Visit Diagnoses Not on filedocumented in this encounter Additional Health Concerns Infection Onset Date Last Indicated Resolved Time COVID-19 Rule Out 02/02/2021 02/02/2021 02/02/2021 11:47 AM AUTOMOTIVE SERVICE MANAGER COVID-19 Rule Out 04/05/2021 04/05/2021 04/05/2021 2:17 PM AUTOMOTIVE SERVICE MANAGER COVID-19 Rule Out 04/05/2021 04/05/2021 04/07/2021 12:13 PM AUTOMOTIVE SERVICE MANAGER COVID-19 Rule Out 07/06/2021 07/06/2021 07/06/2021 10:23 AM CDT COVID-19 Rule Out 10/19/2021 10/19/2021 10/19/2021 1:38 PM CDT COVID-19 Rule Out 10/19/2021 10/19/2021 10/20/2021 3:14 PM CDT COVID-19 Rule Out 11/16/2021 11/16/2021 11/16/2021 5:22 PM CDT COVID-19 Rule Out 05/16/2022 05/16/2022 05/16/2022 2:26 PM AUTOMOTIVE SERVICE MANAGER COVID-19 Rule Out 11/10/2023 11/10/2023 11/10/2023 8:37 AM CDT Assessment Noted Time PHQ-9 Depression Total Score: 2 03/06/20 20 10:21 AM AUTOMOTIVE SERVICE MANAGER documented as of this encounter Care Teams China And Silverware Salesperson Relationship Specialty Start Date End Date Lynne Paris NP PCP - General NURSE PRACTITIONER 03/03/20 02/01/21 Adela Michelle MD [facility] [address] [address] PCP - General INTERNAL MEDICINE 02/02/21 documented as of this encounter
--- OUTSIDE RECORDS SUMMARY | 2024-11-17 13:51 | XMS_ITS | Encounter Summary ---
Author Organization [facility] Address [address] [place] [address] Care Team Providers Care Fare Enforcement Officer Name Role Phone Adela Michelle MD Primary Care Provider [phone] Encounter Details Date Type Department Care Team (Late st Contact Info) Description 11/17/2021 MyChart Message Enc [facility] Medical Group Multispecialty Care - [place] [address] [address] [place], [place] [id number] Adela Michelle MD [address] [place] [address] 157 [place], [place] [id number] Omeprazole Social History Tobacco Use Types Packs/Day Years [...] please move on to questions 3-9 2 11/05/2021 Sex and Gender Information Value Date Recorded [...] suspected to have Coronavirus/COVID-19? No / Unsure 11/16/2021 2:02 PM CDT documented as of this encounter Plan of Treatment Upcoming Encounters Date Type Department Care Team (Latest Contact Info) Description 2024 7:30 AM CDT Hospital Encounter [facility] [place] [address] Rico Roca MD [address] [place] [address] 2024 7:30 AM CDT - 2024 8:[address] [place] [address] Rico Roca MD [address] [place] [address] right endoscopic carpal tunnel release. 12/20/2024 9:40 AM CDT Office Visit [facility] Medical Group Orthopedic & Sports Medicine - [place] 6[address] [place] [address] Joselito Alfaro NP [address] [place] [address] 12/20/2024 1:00 PM CDT Office Visit [facility] Medical Group Multispecialty Care - [place] [address] [address] [place] [address] [place] [address] [place] [address] 157 [place] [address] Scheduled Procedures Name Priority Associated Diagnoses Date/Ti me RELEASE CARPAL TUNNEL ENDOSCOPIC Carpal tunnel syndrome on right 2024 7:30 AM CDT documented as of this encounter Visit Diagnoses Not on filedocumented in this encounter Additional Health Concerns Infection Onset Date Last Indicated Resolved Time COVID-19 Rule Out 05/16/2022 05/16/202205/1605/16/2022 2:26 PM DRAPERY HEMMER AUTOMATIC COVID-19 Rule Out 11/10/2023 11/10/2023 11/10/2023 8:37 AM CDT Assessment Noted Time PHQ-9 Depression Total Score: 2 04/23/19 22 10:21 AM DRAPERY HEMMER AUTOMATIC documented as of this encounter Care Teams Fare Enforcement Officer Relationship Specialty Start Date End Date Adela Michelle MD [address] [address] PCP - General INTERNAL MEDICINE 02/02/21 documented as of this encounter
--- OUTSIDE RECORDS SUMMARY | 2024-11-17 13:51 | XMS_ITS | Clinical Summary ---
Author Organization [facility] Phys[facility] Building [address] [place] [address] Care Team Providers Care Pet Nutrition Specialist Name Role Phone Leonel Wynn NP Primary Care Provider [phone] Allergies No known active allergies Medications QUEtiapine (SEROquel) 200 mg tablet Take 1 tablet by mouth nightly [address] (NexIUM) 20 mg capsule Take 20 mg by mouth daily before breakfast Active albuterol sulfate 90 mcg/actuation aerosol powdr breath activated Inhale 180 mcg every 4 (four) hours Active vilazodone (VIIBRYD) 20 mg tabletIndicatio ns:major depressive disorder Take 1 tablet (20 mg total) by mouth daily 30 tablet 1 9 Active Active Problems Problem Noted Date Diagnosed Date Episode of recurrent major depressive disorder 1 05/09/2018 Depression 03/08/2019 Immunizations Immunization Administration Dates Next Due DTP 11/15/1994,01/22/1991 DTaP 06/26/1989,04/17/1989,01/24/1989 Hep A, Ped Unspecified 05/12/1999,09/26/1998 Hep B, Adolescent or Pediatric 05/11/2000,1998,09/26/1998 HiB 01/22/1991 Influenza, Quadrivalent, Spl it, Preservative Free, Intramuscular 03/08/2019 MMR 11/15/1994,04/30/1990 OPV 11/15/1994, 1,06/26/1989,04/17,01/24/1989 Td, adsorbed 10/27/2003 Varicella 09/26/1998 Surgical History Surgery Date Site/Laterality Comments HERNIA REPAIR Medical History Medical History Date Comments Depression Family History Medical History Relation Name Comments Diabetes Maternal Grandmother Alzheimer's disease Paternal Grandfather Diabetes Paternal Grandmother Relation Name Status Comments Father Alive Maternal Grandmother Mother Alive Paternal Grandfather Paternal Grandmother Social History Tobacco Use Types Packs/Day Years Used Date Smoking Tobacco: Former Cigarettes Q uit: 03/20/2010 Smokeless Tobacco: Never Alcohol Use Standard Drinks/Week Comments Yes 0 (1 standard drink = 0.6 oz pur e alcohol) PHQ-2 Answer Date Recorded PHQ-2 Score 2 03/08/2019 Personal Safety Answer Date Recorded Getting School Help Needed Not on file 06/02 Sex and Gender Information Value Date Recorded Sex Assigned at Not on file Legal Sex Male 7:36 PM FITNESS CENTER ATTENDANT Gender Identity Not on file Sexual Orientation Not on file Obstetrics History Last Filed Vital Signs Vital Sign Reading Time Taken Comments Blood Pressure 132/85 03/08/2019 1:41 PM FITNESS CENTER ATTENDANT Pulse 75 03/08/2019 1:41 PM FITNESS CENTER ATTENDANT Temperature 36.8 C (98.3 F) 03/08/2019 1:41 PM FITNESS CENTER ATTENDANT Respiratory Rate 17 03/08/2019 1:41 PM FITNESS CENTER ATTENDANT Oxygen Saturation 99% 03/08/2019 1:41 PM FITNESS CENTER ATTENDANT Inhaled Oxygen Concentration - - Weight 95.3 kg (210 lb) 03/08/2019 1:41 PM FITNESS CENTER ATTENDANT Height 182.9 cm (6') 03/08/2019 1:41 PM FITNESS CENTER ATTENDANT Body Mass Index 28.48 03/08/2019 1:41 PM FITNESS CENTER ATTENDANT Plan of Treatment Not on file Insurance [facility] CHOICE PLUS [facility] HMO/PPO Address: [facility] [address] [place] [address] Care Teams Pet Nutrition Specialist Relationship Specialty [place] [address] [address] PCP - General Family Medicine 03/08/19
[2024-11-17 13:55] VITALS: BP 144/88; PULSE 86; RESP 20; TEMP 36.6; O2SAT 100
--- OUTSIDE RECORDS SUMMARY | 2024-11-17 14:40 | XMS_ITS | Encounter Summary ---
Author Organization [facility] Address [address] [place] [address] Care Team Providers Care Sales Support Specialist Name Role Phone Adela Michelle MD Primary Care Provider [phone] Encounter Details Date Type Department Care Team (Latest Contact Info) Description 06/21/2021 MyChart Message Enc [facility] Medical Group Multispecialty Care - [place] [address] [address] [place] [address] Adela Michelle MD [address] [place] [address] 157 [place], [place] [phone] follow up visit needed Social History Tobacco [...] Encounter [facility] [place] [address] Rico Roca MD 670 [place] [address] 2024 7:30 AM CDT - 2024 8:[address] [place] [address] Rico Roca MD [address] [place] [address] right endoscopic carpal tunnel release. 12/20/2024 9:40 AM CDT Office Visit [facility] Medical Group Orthopedic & Sports Medicine - [place] 670 [place] [address] Joselito Alfaro NP [address]70 [place] [address] 12/20/2024 1:00 PM CDT Office Visit [facility] Medical Group Multispecialty Care - [place] [address] [address] [place] [address] Adela Michelle MD [address] [place] [address] Scheduled Procedures Name Priority Associated Diagnoses Date/Ti [...] Rule Out 05/16/2022 05/16/2022 05/16/2022 2:26 PM HEAD CLEANING PORTER COVID-19 Rule Out 11/10/2023 11/10/2023 11/10/2023 8:37 AM CDT Assessment Noted Time PHQ-9 Depression Total Score: 2 04/23/19 22 10:21 AM HEAD CLEANING PORTER documented as of this encounter Care Teams Sales Support Specialist Relationship Specialty Start Date End Date Adela Michelle MD [facility] [address] [address] PCP - General INTERNAL MEDICINE 02/02/21 documented as of this encounter
--- OUTSIDE RECORDS SUMMARY | 2024-11-17 14:40 | XMS_ITS | Encounter Summary ---
Author Organization [facility] Address [address] [place] [address] Care Team Providers Care Webbing Inspector Name Role Phone Adela Michelle MD Primary Care Provider [phone] Encounter Details Date Type Department Care Team (Late st Contact Info) Description 04/26/2021 MyChart Message Enc [facility] Medical Group Multispecialty Care - [place] [address] [address] [place] [address] Adela Michelle MD [address] [place] [address] 157 [place], [place] [id number] lab result Social History Tobacco Use Types [...] Coronavirus/COVID-19? No / Unsure 04/22/2021 10:06 AM GRANULATOR documented as of this encounter Plan of Treatment Upcoming Encounters Date Type Department Care Team (Latest Contact Info) Description 2024 7:30 AM CDT Hospital Encounter [facility] [place] [address] Rico Roca MD [address] [place] [address] 2024 7:30 AM CDT - 2024 8:[address] [place] [address] Rico Roca MD [address] [place] [address] right endoscopic carpal tunnel release. 12/20/2024 9:40 AM CDT Office Visit [facility] Medical Group Orthopedic & Sports Medicine - [place] [address] [place] [address] Joselito Alfaro NP 670 [place] [address] 12/20/2024 1:00 PM CDT Office Visit [facility] Medical Group Multispecialty Care - [place] [address] [address] [place] [address] [place] [address] [place] [address] 157 [place] [address] Scheduled Procedures Name Priority Associated Diagnoses Date/Ti [...] Rule Out 05/16/2022 05/16/2022 05/16/2022 2:26 PM GRANULATOR COVID-19 Rule Out 11/10/2023 11/10/2023 11/10/2023 8:37 AM CDT Assessment Noted Time PHQ-9 Depression Total Score: 2 04/23/19 22 10:21 AM GRANULATOR documented as of this encounter Care Teams Webbing Inspector Relationship Specialty Start Date End Date Adela Michelle MD [address] [address] PCP - General INTERNAL MEDICINE 02/02/21 documented as of this encounter
--- OUTSIDE RECORDS SUMMARY | 2024-11-17 14:40 | XMS_ITS | Encounter Summary ---
Author Organization [facility] Address [address] [place] [address] Care Team Providers Care Blender / Cook Name Role Phone Adela Michelle MD Primary Care Provider [phone] Encounter Details Date Type Department Care Team (Late st Contact Info) Description 11/17/2021 MyChart Message Enc [facility] Medical Group Multispecialty Care - [place] [address] [address] [place], [place] [id number] Adela Michelle MD [address] [place] [address] 157 [place], [place] [phone] Omeprazole Social History Tobacco Use Types Packs/Day [...] Encounter [facility] [place] [address] Rico Roca MD [address] [place] [address] 2024 7:30 AM CDT - 2024 8:[address] [place] [address] Rico Roca MD [address] [place] [address] right endoscopic carpal tunnel release. 12/20/2024 9:40 AM CDT Office Visit [facility] Medical Group Orthopedic & Sports Medicine - [place] [address] [place] [address] Joselito Alfaro NP [address]70 [place] [address] 12/20/2024 1:00 PM CDT Office Visit [facility] Medical Group Multispecialty Care - [place] [address] [address] [place] [address] [place] [address] [place] [address] 157 [place] [address] Scheduled Procedures Name Priority Associated Diagnoses Date/Ti me RELEASE CARPAL TUNNEL ENDOSCOPIC Carpal tunnel syndrome on right 2024 7:30 AM CDT documented as of this encounter Visit Diagnoses Not on filedocumented in this encounter Additional Health Concerns Infection Onset Date Last Indicated Resolved Time COVID-19 Rule Out 05/16/2022 05/16/202205/1605/16/2022 2:26 PM ASSISTANT EDITOR COVID-19 Rule Out 11/10/2023 11/10/2023 11/10/2023 8:37 AM CDT Assessment Noted Time PHQ-9 Depression Total Score: 2 04/23/19 22 10:21 AM ASSISTANT EDITOR documented as of this encounter Care Teams Blender / Cook Relationship Specialty Start Date End Date Adela Michelle MD [address] [address] PCP - General INTERNAL MEDICINE 02/02/21 documented as of this encounter
--- OUTSIDE RECORDS SUMMARY | 2024-11-17 14:40 | XMS_ITS | Encounter Summary ---
Author Organization [facility] Address [address] [place] [address] Care Team Providers Care Diagnostic Cardiac Sonographer Name Role Phone Lynne [place] NP Primary Care Provider Adela Cisneros MD Primary Care Provider [phone] Encounter Details Date Type Department Care Team (Late st Contact Info) Description 05/20/2020 Jamgot Message Enc [facility] Medical Group Multispecialty Care [address] [place] [address] Lynne Paris, MIRTA RE: Question Social History [...] COVID-19? No / Unsure 05/18/2020 9:26 AM BAKERY MACHINE MECHANIC documented as of this encounter Plan of Treatment Upcoming Encounters Date Type Department Care Team (Latest Contact Info) Description 2024 7:30 AM CDT Hospital Encounter [facility] [place] [address] Rico Roca MD [address] [place] [address] 2024 7:30 AM CDT - 2024 8:[address] [facility] [place] [address] Rico Roca MD [address] [place] [address] right endoscopic carpal tunnel release. 12/20/2024 9:40 AM CDT Office Visit [facility] Medical Group Orthopedic & Sports Medicine - [place] [address] [place] [address] Joselito Alfaro NP [address] [place] [address] 12/20/2024 1:00 PM CDT Office Visit [facility] Medical Group Multispecialty Care - [place] [address] [address] [place] [address] Adela Michelle MD [address] [place] [address] 157 [place] [address] Scheduled Procedures Name Priority Associated Diagnoses Date/Ti me RELEASE CARPAL TUNNEL ENDOSCOPIC Carpal tunnel syndrome on right 2024 7:30 AM CDT documented as of this encounter Visit Diagnoses Not on filedocumented in this encounter Additional Health Concerns Infection Onset Date Last Indicated Resolved Time COVID-19 Rule Out 05/18/2020 05/18/2020 05/20/2020 2:30 AM BAKERY MACHINE MECHANIC COVID-19 Rule Out 02/02/2021 02/02/2021 02/02/2021 11:47 AM BAKERY MACHINE MECHANIC COVID-19 Rule Out 04/05/2021 04/05/2021 04/05/2021 2:17 PM BAKERY MACHINE MECHANIC COVID-19 Rule Out 04/05/2021 04/05/2021 04/07/2021 12:13 PM BAKERY MACHINE MECHANIC COVID-19 Rule Out 07/06/2021 07/06/2021 07/06/2021 10:23 AM CDT COVID-19 Rule Out 10/19/2021 10/19/2021 10/19/2021 1:38 PM CDT COVID-19 Rule Out 10/19/2021 10/19/2021 10/20/2021 3:14 PM CDT COVID-19 Rule Out 11/16/2021 11/16/2021 11/16/2021 5:22 PM CDT COVID-19 Rule Out 05/16/2022 05/16/2022 05/16/2022 2:26 PM BAKERY MACHINE MECHANIC COVID-19 Rule Out 11/10/2023 11/10/2023 11/10/2023 8:37 AM CDT Assessment Noted Time PHQ-9 Depression Total Score: 2 03/06/20 10:21 AM BAKERY MACHINE MECHANIC documented as of this encounter Care Teams Diagnostic Cardiac Sonographer Relationship Specialty Start Date End Date Lynne Paris NP PCP - General NURSE PRACTITIONER 03/03/20 02/01/21 Adela Michelle MD [address] [address] PCP - General INTERNAL MEDICINE 02/02/21 documented as of this encounter
--- OUTSIDE RECORDS SUMMARY | 2024-11-17 14:40 | XMS_ITS | Encounter Summary ---
Author Organization [facility] Address [facility] [place] [address] Care Team Providers Care Care Partner Name Role Phone Adela Michelle MD Primary Care Provider [phone] Encounter Details Date Type Department Care Team (Latest Contact Info) Description 07/11/2023 MyChart Message Enc [facility] Medical Group Multispecialty Care - [place] [address] [address] [place] [address] Adela Michelle MD [address] [place] [address] 157 [place], [place] [id number] Refill on wixela 500mlg Social History Tobacco Use Types Packs/Day Years Used Date Smoking Tobacco: Former Cigarettes 2 - 2011 Electronic Cigarettes Salvatore t: 07/20/2020 Smokeless Tobacco: Never Comments:Social smoker in [place], pt stopped e-cigs July 2020; counseled by [...] Encounter [facility] [place] [address] Rico Roca MD [address] [place] [address] 2024 7:30 AM CDT - 2024 8:[address] [place] [address] Rico Roca MD [address] [place] [address] right endoscopic carpal tunnel release. 12/20/2024 9:40 AM CDT Office Visit [facility] Medical Group Orthopedic & Sports Medicine - [place] [address] [place] [address] Joselito Alfaro NP [address] [place] [address] 12/20/2024 1:00 PM CDT Office Visit [facility] Medical Group Multispecialty Care - [place] [address] [address] [place] [address] Adela Michelle MD [address] [place] [address] Scheduled Procedures Name Priority Associated Diagnoses Date/Ti [...] documented as of this encounter Care Teams Care Partner Relationship Specialty Start Date End Date Adela Michelle MD [address] [address] PCP - General INTERNAL MEDICINE 02/02/21 documented as of this encounter
--- OUTSIDE RECORDS SUMMARY | 2024-11-17 14:40 | XMS_ITS | Encounter Summary ---
Author Organization [facility] Address [address] [place] [address] Care Team Providers Care Quarry Plant Crusher Operator Name Role Phone Adela Michelle MD Primary Care Provider [phone] Encounter Details Date Type Department Care Team (Late Contact Info) Description 09/14/2022 MyChart Message Enc [facility] Medical Group - [facility] [address] [place], [place] [address] [facility] Provider Air Quality Message Social History Tobacco Use Types Packs/Day Years Used Date Smoking Tobacco: Former Cigarettes 2 - 2011 Electronic Cigarettes Salvatore t: 07/20/2020 Smokeless Tobacco: Never Comments:Social smoker in [facility], pt stopped e-cigs July 2020; [...] Description 2024 7:30 AM CDT Hospital Encounter [facility] [place] [address] Rico Roca MD [address] [place] [address] 2024 7:30 AM CDT - 2024 8:34 AM CDT Surgery [facility] [address] [facility] [place] [address] Rico Roca MD [address] [place] [address] right endoscopic carpal tunnel release. 12/20/2024 9:40 AM CDT Office Visit [facility] Medical Group Orthopedic & Sports Medicine - [place] [address] [place] [address] Joselito Alfaro NP [address] [place] [address] 12/20/2024 1:00 PM CDT Office Visit [facility] Medical Group Multispecialty Care - [place] [address] [address] [place] [address] Adela Michelle MD [address] [place] [address] Scheduled Procedures Name Priority Associated Diagnoses Date/Ti [...] Total Score: 2 04/23/19 22 10:21 AM PARTS COUNTER REPRESENTATIVE documented as of this encounter Care Teams Quarry Plant Crusher Operator Relationship Specialty Start Date End Date Adela Michelle MD [address] [place] [address] PCP - General INTERNAL MEDICINE 02/02/21 documented as of this encounter
--- OUTSIDE RECORDS SUMMARY | 2024-11-17 14:40 | XMS_ITS | Encounter Summary ---
Author Organization [facility] Address [facility] [place] [address] Care Team Providers Care Make Up Worker Name Role Phone Adela Michelle MD Primary Care Provider [phone] Encounter Details Date Type Department Care Team ([facility] Contact Info) Description 04/02/2024 MyChart Message Enc [facility] Medical Group Multispecialty Care - [place] [address] [address] [place] [address] Adela Michelle MD [address] [place] [address] 157 [place], [place] [id number] Results from gi Social History Tobacco Use Types Packs/Day Years Used Date Smoking Tobacco: Former Cigarettes 2 - 2011 Electronic Cigarettes Salvatore t: 07/20/2020 Smokeless Tobacco: Never Comments:Social smoker in [facility], pt stopped e-cigs July 2020; counseled [...] Encounter [facility] [place] [address] Rico Roca MD [address] [place] [address] 2024 7:30 AM CDT - 2024 8:[address] [facility] [place] [address] Rico Roca MD [address] [place] [address] right endoscopic carpal tunnel release. 12/20/2024 9:40 AM CDT Office Visit [facility] Medical Group Orthopedic & Sports Medicine - [place] [address] [place] [address] Joselito Alfaro NP [address] [place] [address] 12/20/2024 1:00 PM CDT Office Visit [facility] Medical Group Multispecialty Care [place] [address] [address] [place] [address] Adela Michelle MD [facility] [address] Scheduled Procedures Name Priority Associated Diagnoses Date/Ti me RELEASE CARPAL TUNNEL ENDOSCOPIC Carpal tunnel syndrome on right 2024 7:30 AM CDT documented as of this encounter Visit Diagnoses Not on filedocumented in this encounter Additional Health Concerns Assessment Noted Time PHQ-9 Depression Total Score: 6 12/15/19 24 9:45 AM CDT documented as of this encounter Care Teams Make Up Worker Relationship Specialty Start Date End Date Adela Michelle MD [address] [place] [address] PCP - General INTERNAL MEDICINE 02/02/21 documented as of this encounter
--- OUTSIDE RECORDS SUMMARY | 2024-11-17 14:40 | XMS_ITS | Encounter Summary ---
Author Organization [facility] Address [address] [place] [address] Care Team Providers Care Eyelet Maker Name Role Phone Adela Michelle MD Primary Care Provider [phone] Encounter Details Date Type Department Care Team (Late st Contact Info) Description 06/06/2023 MyChart Message Enc [facility] Medical Group Multispecialty Care - [place] [address] [address] [place] [address] Adela Michelle MD [address] [place] [address] 157 [place], [place] [id number] Psych Social History Tobacco Use Types Packs/Day Years Used Date Smoking Tobacco: Former Cigarettes 2 - 2011 Electronic Cigarettes Salvatore t: 07/20/2020 Smokeless Tobacco: Never Comments:Social smoker in [facility], pt stopped e-cigs July 2020; counseled [...] Description 2024 7:30 AM CDT Hospital Encounter [facility] [place] [address] Rico Roca MD [address] [place] [address] 2024 7:30 AM CDT - 2024 8:[address] [place] [address] Rico Roca MD [address] [place] [address] right endoscopic carpal tunnel release. 12/20/2024 9:40 AM CDT Office Visit [facility] Medical Group Orthopedic & Sports Medicine - [place] [address] [place] [address] Joselito Alfaro NP [address] [place] [address] 12/20/2024 1:00 PM CDT Office Visit [facility] Medical Group Multispecialty Care [place] [address] [address] [place] [address] Adela Michelle MD [address] [place] [address] Scheduled Procedures Name Priority Associated Diagnoses Date/Ti [...] Depression Total Score: 6 03/24/19 3:55 PM ON SITE SOIL EVALUATOR documented as of this encounter Care Teams Eyelet Maker Relationship Specialty Start Date End Date Adela Michelle MD [address] [address] PCP - General INTERNAL MEDICINE 02/02/21 documented as of this encounter
--- OUTSIDE RECORDS SUMMARY | 2024-11-17 14:40 | XMS_ITS | Encounter Summary ---
Author Organization [facility] Address [facility] [place] [place] [address] Care Team Providers Care Cabinet Mounter Name Role Phone Adela Michelle MD Primary Care Provider [phone] Encounter Details Date Type Department Care Team (Late st Contact Info) Description 07/25/2023 MyChart Message Enc [facility] Medical Group Multispecialty Care - [place] [address] [address] [place] [address] Adela Michelle MD [address] [place] [address] 157 [place], [place] [id number] Magnesium lab Social History Tobacco Use Types [...] Description 2024 7:30 AM CDT Hospital Encounter [facility] [place] [address] Rico Roca MD [address] [place] [address] 2024 7:30 AM CDT - 2024 8:[address] [place] [address] Rico Roca MD [address] [place] [address] right endoscopic carpal tunnel release. 12/20/2024 9:40 AM CDT Office Visit [facility] Medical Group Orthopedic & Sports Medicine - [place] [address] [place] [address] Joselito Alfaro NP [address] [place] [address] 12/20/2024 1:00 PM CDT Office Visit [facility] Medical Group Multispecialty Care - [place] [address] [address] [place] [address] Adela Michelle MD [address] [place] [address] Scheduled Procedures Name Priority Associated Diagnoses Date/Ti [...] documented as of this encounter Care Teams Cabinet Mounter Relationship Specialty Start Date End Date Adela Michelle MD [address] [address] PCP - General INTERNAL MEDICINE 02/02/21 documented as of this encounter
--- OUTSIDE RECORDS SUMMARY | 2024-11-17 14:40 | XMS_ITS | Encounter Summary ---
Author Organization [facility] Address [facility] [place] [address] Care Team Providers Care Envelope Machine Operator Name Role Phone Adela Michelle MD Primary Care Provider [phone] Encounter Details Date Type Department Care Team (Late st Contact Info) Description 10/19/2021 Genus Oncology Message Enc [facility] Medical Group Multispecialty Care - [address] [place] [address] [facility] Provider Work Note Social History Tobacco Use [...] Encounter [facility] [place] [address] Rico Roca MD [address] [place] [address] 2024 7:30 AM CDT - 2024 8:[address] [place] [address] Rico Roca MD [address] [place] [address] right endoscopic carpal tunnel release. 12/20/2024 9:40 AM CDT Office Visit [facility] Medical Group Orthopedic & Sports Medicine - [place] [address] [place] [address] Joselito Alfaro NP [address] [place] [address] 12/20/2024 1:00 PM CDT Office Visit [facility] Medical Group Multispecialty Care - [place] [address] [address] [place] [address] Adela Michelle MD [address] [place] [address] Scheduled Procedures Name Priority Associated Diagnoses Date/Ti [...] Rule Out 05/16/2022 05/16/2022 05/16/2022 2:26 PM DUMPER BULK SYSTEM COVID-19 Rule Out 11/10/2023 11/10/2023 11/10/2023 8:37 AM CDT Assessment Noted Time PHQ-9 Depression Total Score: 2 04/23/19 22 10:21 AM DUMPER BULK SYSTEM documented as of this encounter Care Teams Envelope Machine Operator Relationship Specialty Start Date End Date Adela Michelle MD [address] [address] PCP - General INTERNAL MEDICINE 02/02/21 documented as of this encounter
--- OUTSIDE RECORDS SUMMARY | 2024-11-17 14:40 | XMS_ITS | Encounter Summary ---
Author Organization [facility] Address [address] [place] [address] Care Team Providers Care Key Account Manager Name Role Phone Lynne [place] NP Primary Care Provider Adela Cisneros MD Primary Care Provider [phone] Encounter Details Date Type Department Care Team (Latest Contact Info) Description 07/30/2020 Dmailer Message Enc [facility] Medical Group Multispecialty [address] [place] [address] Lynne [place], MIRTA RE: Follow Up/Update Social [...] Description 2024 7:30 AM CDT Hospital Encounter [facility] [place] [address] Rico Roca MD [address] [place] [address] 2024 7:30 AM CDT - 2024 8:34 AM CDT Surgery [facility] [place] [address] Rico Roca MD [address] [place] [address] right endoscopic carpal tunnel release. 12/20/2024 9:40 AM CDT Office Visit [facility] Medical Group Orthopedic & Sports Medicine - [place] [address] [place] [address] Joselito Alfaro NP [address] [place] [address] 12/20/2024 1:00 PM CDT Office Visit [facility] Medical Group Multispecialty Care - [place] [address] [address] [place] [address] Adela Michelle MD [address] [place] [address] 157 [place] [address] Scheduled Procedures Name Priority Associated Diagnoses Date/Ti me RELEASE CARPAL TUNNEL ENDOSCOPIC Carpal tunnel syndrome on right 2024 7:30 AM CDT documented as of this encounter Visit Diagnoses Not on filedocumented in this encounter Additional Health Concerns Infection Onset Date Last Indicated Resolved Time COVID-19 Rule Out 02/02/2021 02/02/2021 02/02/2021 11:47 AM DESIGN MAINTENANCE ENGINEER COVID-19 Rule Out 04/05/2021 04/05/2021 04/05/2021 2:17 PM DESIGN MAINTENANCE ENGINEER COVID-19 Rule Out 04/05/2021 04/05/2021 04/07/2021 12:13 PM DESIGN MAINTENANCE ENGINEER COVID-19 Rule Out 07/06/2021 07/06/202107/06/2021 10:23 AM CDT COVID-19 Rule Out 10/19/2021 10/19/2021 10/19/2021 1:38 PM CDT COVID-19 Rule Out 10/19/2021 10/19/2021 10/20/2021 3:14 PM CDT COVID-19 Rule Out 11/16/2021 11/16/2021 11/16/2021 5:22 PM CDT COVID-19 Rule Out 05/16/2022 05/16/2022 05/16/2022 2:26 PM DESIGN MAINTENANCE ENGINEER COVID-19 Rule Out 11/10/2023 11/10/2023 11/10/2023 8:37 AM CDT Assessment Noted Time PHQ-9 Depression Total Score: 2 03/06/20 20 10:21 AM DESIGN MAINTENANCE ENGINEER documented as of this encounter Care Teams Key Account Manager Relationship Specialty Start Date End Date Lynne [place] POT PULLER PCP - General NURSE PRACTITIONER 03/03/20 02/01/21 Adela Michelle MD [address] [address] PCP - General INTERNAL MEDICINE 02/02/21 documented as of this encounter
--- OUTSIDE RECORDS SUMMARY | 2024-11-17 14:40 | XMS_ITS | Encounter Summary ---
Author Organization [facility] Address [facility]6 [place] [address] Care Team Providers Care Thermo Processor Name Role Phone Adela Michelle MD Primary Care Provider [phone] Encounter Details Date Type Department Care Team ([facility] Contact Info) Description 07/09/2024 MyChart Message Enc [facility] Medical Group Multispecialty Care - [place] [address] [address] [place] [address] Adela Michelle MD [address] [place] [address] 157 [place], [place] [phone] Emg order Social History Tobacco Use Types Packs/Day Years Used Date Smoking Tobacco: Former Cigarettes 2 - 2011 Electronic Cigarettes Salvatore t: 07/20/2020 Smokeless Tobacco: Never Comments:Social smoker in [facility], pt stopped e-cigs July 2020; counseled [...] En[facility] [place] [address] Rico Roca MD [address] [place] [address] 2024 7:30 AM CDT - 2024 8:[address] [facility] [place] [address] Rico Roca MD [address] [place] [address] right endoscopic carpal tunnel release. 12/20/2024 9:40 AM CDT Office Visit [facility] Medical Group Orthopedic & Sports Medicine - [place] [address] [place] [address] Joselito Alfaro NP [address] [place] [address] 12/20/2024 1:00 PM CDT Office Visit [facility] Medical Group Multispecialty Care - [place] [address] [address] [place] [address] Adela Michelle MD [facility] [address] [address] Scheduled Procedures Name Priority Associated Diagnoses Date/Ti me RELEASE CARPAL TUNNEL ENDOSCOPIC Carpal tunnel syndrome on right 2024 7:30 AM CDT documented as of this encounter Visit Diagnoses Not on filedocumented in this encounter Additional Health Concerns Assessment Noted Time PHQ-9 Depression Total Score: 7 06/15/19 25 11:06 AM CDT documented as of this encounter Care Teams Thermo Processor Relationship Specialty Start Date End Date Adela Michelle MD [address] [place] [address] PCP - General INTERNAL MEDICINE 02/02/21 documented as of this encounter
--- OUTSIDE RECORDS SUMMARY | 2024-11-17 14:40 | XMS_ITS | Encounter Summary ---
Author Organization [facility] Address [facility] [place] [address] Care Team Providers Care Gluing Pressman Name Role Phone Adela Michelle MD Primary Care Provider [phone] Encounter Details Date Type Department Care Team (Late st Contact Info) Description 10/21/2021 MyChart Message Enc [facility] Medical Group Multispecialty Care - [place] [address] [address] [place], [place] [phone] Adela Michelle MD [address] [place] [address] 157 [place], [place] [phone] Pre appt labs Social History Tobacco Use [...] Encounter [facility] [place] [address] Rico Roca MD [address] [place] [address] 2024 7:30 AM CDT - 2024 8:[address] [place] [address] Rico Roca MD [address] [place] [address] right endoscopic carpal tunnel release. 12/20/2024 9:40 AM CDT Office Visit [facility] Medical Group Orthopedic & Sports Medicine - [place] [address] [place] [address] Joselito Alfaro NP [address] [place] [address] 12/20/2024 1:00 PM CDT Office Visit [facility] Medical Group Multispecialty Care - [place] [address] [address] [place] [address] Adela Michelle MD [address] [place] [address] 157 [place] [address] Scheduled Procedures Name Priority Associated Diagnoses Date/Ti me RELEASE CARPAL TUNNEL ENDOSCOPIC Carpal tunnel syndrome on right 2024 7:30 AM CDT documented as of this encounter Visit Diagnoses Not on filedocumented in this encounter Additional Health Concerns Infection Onset Date Last Indicated Resolved Time COVID-19 Rule Out 11/16/2021 11/16/2021 11/16/2021 5:22 PM CDT COVID-19 Rule Out 05/16/2022 05/16/2022 05/16/2022 2:26 PM PIANO MACHINE OPERATOR COVID-19 Rule Out 11/10/2023 11/10/2023 11/10/2023 8:37 AM CDT Assessment Noted Time PHQ-9 Depression Total Score: 2 04/23/19 22 10:21 AM PIANO MACHINE OPERATOR documented as of this encounter Care Teams Gluing Pressman Relationship Specialty Start Date End Date Adela Michelle MD [address] [address] PCP - General INTERNAL MEDICINE 02/02/21 documented as of this encounter
--- OUTSIDE RECORDS SUMMARY | 2024-11-17 14:40 | XMS_ITS | Clinical Summary ---
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
--- OUTSIDE RECORDS SUMMARY | 2024-11-17 14:40 | XMS_ITS | Clinical Summary ---
Author Organization [facility] Address [address] [place] [address] Care Team Providers Care Irrigation Installation Specialist Name Role Phone Adela Michelle MD Primary Care Provider [phone] Allergies Active Allergy Reactions Criticality Noted Date [...] controlled. Assessment & Plan (04/23/2021 10:57 AM PRINCIPAL PROGRAMMER): On Seroquel and follows with Dr Mae every 3 months; stable but not optimally controlled. Anxiety 04/23/2021 Depression 03/08/2019 Episode of recurrent major depressive disorder 1 05/09/2018 Assessment & Plan (04/23/2021 10:56 AM PRINCIPAL PROGRAMMER): On Wellbutrin and Sertraline and follows with Dr Mae. Stable but not optimally controlled. Encounters Date Type Department Care Team Description 11/15/2024 9:40 AM CDT Office Visit [facility] Medical Group Orthopedic & Sports Medicine - [place] [address] [place] [address] Joselito Alfaro, MIRTA Pre-Op Exam 11/15/2024 Travel 10/23/2024 Prep for Procedure [facility] Orthopedic [facility] Sports Medicine [facility] [address] [place] [address] Rico Roca MD 10/21/2024 2:40 PM CDT Office Visit [facility] Medical Group Orthopedic & Sports Medicine - [place] [address] [place] [address] Joselito Alfaro, RN REVIEW Follow Up (EMG) 10/21/2024 Travel from Last [...] Description 2024 7:30 AM CDT Hospital Encounter [facility] [place] [address] Rico Roca MD [address] [place], [place] [address] 468- 2024 7:30 AM CDT - 2024 8:34 AM CDT Surgery [facility] [place] [address] Rico Roca MD [address] [place] [address] right endoscopic carpal tunnel release. 12/20/2024 9:40 AM CDT Office Visit [facility] Medical Group Orthopedic & Sports Medicine - [place] [address] [place] [address] Joselito Alfaro NP [address] [place] [address] 12/20/2024 1:00 PM CDT Office Visit [facility] Medical Group Multispecialty Care [place] [address] [address] [place] [address] Adela Michelle MD [address] [facility] [address] [place] [address] Scheduled Procedures Name Priority Associated Diagnoses Date/Ti [...] 05/11/2000, 12/01/1998, Additional history exists PHQ-2 (Physician [place]) Completed 06/14/2024 Meningococcal B Vaccine Aged Out [...] Juarez RN Medical Devices Implanted Type Area [facility]rop[facility] Device Identifier Shelf Expiration Date Model / Serial / Lot Mesh Surg Ultpro 6x3in Part Absorb Ltwt Ster - [id number] Implanted:Qty: 1 on 11/23/2017 by Tila Ferris MD at [facility] Left: Inguinal [employer] 10/16/2022 [id number] / / [id number] Procedures Procedure Name Priority Date/Time Associated Diagnosis Comments LIPID PANEL Routine 12/01/2023 8:09 AM CDT Familial hypercholesterolemia HEMOGLOBIN, GLYCOSYLATED Routine 12/01/2023 8:09 AM CDT Type 2 diabetes mellitus without complication, with long-term current use of insulin HEPATITIS C ANTIBODY Routine 04/23/2021 10:29 AM PRINCIPAL PROGRAMMER Encounter for hepatitis C screening test for low risk patient from Last 3 Months or Most Recently Relevant to Health Maintenance Results * HEMOGLOBIN, GLYCOSYLATED (12/01/2023 8:09 AM CDT) HGB A1C 5.4 <5.7 % of total Hgb [facility] [place] Comment: For the purpose of screening for the presence of diabetes: <5.7% Consistent with the absence of diabetes 5.7-6.4% Consistent with increased risk for diabetes (prediabetes) > or =6.5% Consistent with diabetes This assay result is consistent with a decreased risk of diabetes. Currently, no consensus exists regarding use of hemoglobin A1c for diagnosis of diabetes in children. According to [place] Diabetes Association (ADA) guidelines, hemoglobin A1c <7.0% represents optimal control in non- diabetic patients. Different metrics may apply to specific patient populations. Standards of Medical Care in Diabetes(ADA). This test was performed on the Stefanie jaswinder c503 platform. Effective 06/05/23, a change in test platforms from the Hyatt Final Block Press Operator to the Stefanie jaswinder c503 may have shifted HbA1c results compared to historical results. Based on laboratory validation testing conducted at [facility], the Stefanie platform relative to the Hyatt [...] Comment Performing Organization Information: Site ID: Name: [facility] Address: [address] [place] [id number] Director: Candy Prieto Adela Michelle MD LABORATORY Final Result [facility] JESSIE - PEDRO ORDERS [address] [address], * (ABNORMAL) LIPID PANEL (12/01/2023 8:09 AM CDT) [facility] Signature CHOLESTEROL 163 <200 mg/dL [facility] HDL 33(L) > OR = 40 mg/dL [facility] TRIGLYCERIDES 309(H) <150 mg/dL [facility] Comment: If a non-fasting specimen was collected, consider repeat triglyceride testing on a fasting specimen if clinically indicated. Baldo et al. J. of Clin. Lipidol. 2015;9:129-169. LDL (CALCULATED) 89 mg/dL (calc) [facility] Comment: Reference range: <100 Desirable range <100 mg/dL for primary prevention; <70 mg/dL for patients with CHD or diabetic patients with > or = 2 CHD risk factors. LDL-C is now calculated using the Singh-Solomon calculation, which is a validated novel method providing better accuracy than the Friedewald equation in the estimation of LDL-C. Singh SS et al. MIGEL. 2013;310(19): 0256-9026 (http://education.[employer]/faq/WCT399) CHOL/HDL RATIO 4.9 <5.0 (calc) [facility] NON HDL CHOLESTEROL 130(H) <130 mg/dL (calc) [facility] Comment: For patients with diabetes plus 1 major ASCVD risk factor, treating to a non-HDL-C goal of <100 mg/dL (LDL-C of <70 mg/dL) is considered a therapeutic option. 12/01/2023 8:09 AM CDT 12/01/2023 8:10 AM CDT Narrative [facility] - 12/02/2023 4:50 AM CDT FASTING:YES FASTING: YES Resulting Agency Comment Performing Organization Information: Site ID: [id number] Name: [facility] Address: [address] [place] [address] [place] [address] Director: Candy Prieto MD Adela Michelle MD LABORATORY Final Result Performing Organization Address City/[facility]/ZIP Co de Phone Number [facility] [address] [facility] [place] [address], * HEPATITIS C ANTIBODY (04/23/2021 10:29 AM PRINCIPAL PROGRAMMER) HEPATITIS C AB NON-REACTI VE NON-REACT HOMAR 04/23/2021 9:28 PM PRINCIPAL PROGRAMMER [facility] Comment: ANTIBODIES TO HCV NOT DETECTED. DOES NOT EXCLUDE THE POSSIBILITY OF EXPOSURE TO HCV. 04/23/2021 10:2 9 AM PRINCIPAL PROGRAMMER us Adela Michelle MD LABORATORY Final Result Performing Organization Address City/[facility]/ZIP Co de Phone Number [facility] [address] [place] [address], [phone] from Last 3 Months or Most Recently Relevant to Health Maintenance Additional Health Concerns Active Problems Noted Date Diagnosed Date Autogenerated Problem 10/23/2024 Insurance [facility] Care Teams Irrigation Installation Specialist Relationship Specialty Start Date End Date Adela Michelle MD [address] [address] PCP - General INTERNAL MEDICINE 02/02/21
--- OUTSIDE RECORDS SUMMARY | 2024-11-17 14:40 | XMS_ITS | Encounter Summary ---
Author Organization [facility] Address [facility] [place] [address] Care Team Providers Care Textile Chemist Name Role Phone Adela Michelle MD Primary Care Provider [phone] Encounter Details Date Type Department Care Team (Latest Contact Info) Description 05/09/2023 MyCCoreOSt Message Enc [facility] Medical Group Multispecialty Care - [place] [address] [address] [place], [place] [id number] Adela Michelle MD [address] [place] [address] 157 [place], [place] [id number] Pulmonary referral Social History Tobacco Use Types [...] referral under asthma under Dr. Michelle. Thanks FACTURING JOB TITLES documented in this encounter Plan of Treatment Upcoming Encounters Date Type Department Care Team (Latest Contact Info) Description 2024 7:30 AM CDT Hospital Encounter [facility] [place] [address] Rico Roca MD [address] [place] [address] 2024 7:30 AM CDT - 2024 8:34 AM CDT Surgery [facility] [place] [address] Rico Roca MD [address] [place] [address] right endoscopic carpal tunnel release. 12/20/2024 9:40 AM CDT Office Visit [facility] Medical Group Orthopedic & Sports Medicine - [place] [address] [place] [address] Joselito Alfaro NP [address] [place] [address] 12/20/2024 1:00 PM CDT Office Visit [facility] Medical Group Multispecialty Care - [place] [address] [address] [address] [place] [address] [place] [address] [place] [address] 157 [place] [address] Scheduled Procedures Name Priority Associated Diagnoses Date/Ti [...] Total Score: 6 03/24/19 24 3:55 PM MANUFACTURING JOB TITLES documented as of this encounter Care Teams Textile Chemist Relationship Specialty Start Date End Date Adela Michelle MD [address] [address] PCP - General INTERNAL MEDICINE 02/02/21 documented as of this encounter
--- OUTSIDE RECORDS SUMMARY | 2024-11-17 14:40 | XMS_ITS | Encounter Summary ---
Author Organization [facility] Address [address] [place] [address] Care Team Providers Care General Maintenance Mechanic Name Role Phone Adela Michelle MD Primary Care Provider [phone] Encounter Details Date Type Department Care Team (Latest Contact Info) Description 03/09/2021 Photos I Liket Message Enc [facility] Medical Group Multispecialty Care - [place] [address] [address] [address] [place], [place] [phone] Adela Michelle MD [address] [place] [address] 157 [place], [place] [phone] due for your physical Social History Tobacco [...] Description 2024 7:30 AM CDT Hospital Encounter [facility] [place] [address] Rcio Roca MD [address] [place] [address] 2024 7:30 AM CDT - 2024 8:34 AM CDT Surgery [place] [address] Rico Roca MD [address] [place] [address] right endoscopic carpal tunnel release. 12/20/2024 9:40 AM CDT Office Visit [facility] Medical Group Orthopedic & Sports Medicine - [place] [address] [place] [address] Joselito Alfaro NP [address] [place] [address] 12/20/2024 1:00 PM CDT Office Visit [facility] Medical Group Multispecialty Care - [place] [address] [address] [place] [address] Adela Michelle MD [address] [place] [address] Scheduled Procedures Name Priority Associated Diagnoses Date/Ti me RELEASE CARPAL TUNNEL ENDOSCOPIC Carpal tunnel syndrome on right 2024 7:30 AM CDT documented as of this encounter Visit Diagnoses Not on filedocumented in this encounter Additional Health Concerns Infection Onset Date Last Indicated Resolved Time COVID-19 Rule Out 04/05/2021 04/05/2021 04/05/2021 2:17 PM ORTHOPAEDIC GENERAL COVID-19 Rule Out 04/05/2021 04/05/2021 04/07/2021 12:13 PM ORTHOPAEDIC GENERAL COVID-19 Rule Out 07/06/2021 07/06/202107/0607/06/2021 10:23 AM CDT COVID-19 Rule Out 10/19/2021 10/19/2021 10/19/2021 1:38 PM CDT COVID-19 Rule Out 10/19/2021 10/19/2021 10/20/2021 3:14 PM CDT COVID-19 Rule Out 11/16/2021 11/16/2021 11/16/2021 5:22 PM CDT COVID-19 Rule Out 05/16/2022 05/16/2022 05/16/2022 2:26 PM ORTHOPAEDIC GENERAL COVID-19 Rule Out 11/10/2023 11/10/2023 11/10/2023 8:37 AM CDT Assessment Noted Time PHQ-9 Depression Total Score: 8 09/05/19 10:18 AM CDT documented as of this encounter Care Teams General Maintenance Mechanic Relationship Specialty Start Date End Date Adela Michelle MD [address] [address] PCP - General INTERNAL MEDICINE 02/02/21 documented as of this encounter
--- OUTSIDE RECORDS SUMMARY | 2024-11-17 14:40 | XMS_ITS | Encounter Summary ---
Author Organization [facility] Address [address] [place] [address] Care Team Providers Care Unclaimed Property Manager Name Role Phone Lynne Paris NP Primary Care Provider Adela Cisneros MD Primary Care Provider [phone] Encounter Details Date Type Department Care Team (Late st Contact Info) Description 08/13/2020 [employer] ([employer] Message Enc [facility] Medical Group Multispecialty Care [address] [place] [address] Lynne Paris, MIRTA RE: Other Social History [...] 2024 7:30 AM CDT Hospital Encounter [facility] [place] [address] Rico Roca MD [address] [place] [address] 2024 7:30 AM CDT - 2024 8:34 AM CDT Surgery [facility] [place] [address] Rico Roca MD [address] [place] [address] right endoscopic carpal tunnel release. 12/20/2024 9:40 AM CDT Office Visit [facility] Medical Group Orthopedic & Sports Medicine - [place] [address] [place] [address] Joselito Alfaro NP [address] [place] [address] 12/20/2024 1:00 PM CDT Office Visit [facility] Medical Group Multispecialty Care - [place] [address] [address] [place] [address] Adela Michelle MD [address] [place] [address] 157 [place] [address] Scheduled Procedures Name Priority Associated Diagnoses Date/Ti me RELEASE CARPAL TUNNEL ENDOSCOPIC Carpal tunnel syndrome on right 2024 7:30 AM CDT documented as of this encounter Visit Diagnoses Not on filedocumented in this encounter Additional Health Concerns Infection Onset Date Last Indicated Resolved Time COVID-19 Rule Out 02/02/2021 02/02/2021 02/02/2021 11:47 AM STRUCTURAL STEEL WORKER APPRENTICE COVID-19 Rule Out 04/05/2021 04/05/2021 04/05/2021 2:17 PM STRUCTURAL STEEL WORKER APPRENTICE COVID-19 Rule Out 04/05/2021 04/05/2021 04/07/2021 12:13 PM STRUCTURAL STEEL WORKER APPRENTICE COVID-19 Rule Out 07/06/2021 07/06/2021 07/06/2021 10:23 AM CDT COVID-19 Rule Out 10/19/2021 10/19/2021 10/19/2021 1:38 PM CDT COVID-19 Rule Out 10/19/2021 10/19/2021 10/20/2021 3:14 PM CDT COVID-19 Rule Out 11/16/2021 11/16/2021 11/16/2021 5:22 PM CDT COVID-19 Rule Out 05/16/2022 05/16/2022 05/16/2022 2:26 PM STRUCTURAL STEEL WORKER APPRENTICE COVID-19 Rule Out 11/10/2023 11/10/2023 11/10/2023 8:37 AM CDT Assessment Noted Time PHQ-9 Depression Total Score: 2 03/06/20 20 10:21 AM STRUCTURAL STEEL WORKER APPRENTICE documented as of this encounter Care Teams Unclaimed Property Manager Relationship Specialty Start Date End Date Lynne Paris NP PCP - General NURSE PRACTITIONER 03/03/20 02/01/21 Adela Michelle MD [facility] [address] PCP - General INTERNAL MEDICINE 02/02/21 documented as of this encounter
--- OUTSIDE RECORDS SUMMARY | 2024-11-17 14:40 | XMS_ITS | Encounter Summary ---
Author Organization [facility] Address [facility]6 [place] [address] Care Team Providers Care Operations Manager Assistant Name Role Phone Adela Michelle MD Primary Care Provider [phone] Encounter Details Date Type Department Care Team ([facility] st Contact Info) Description 11/09/2023 MyChart Message Enc [facility] Medical Group Multispecialty Care - [place] [address] [address] [address] [place] [address] Adlea Michelle MD [address] [place] [address] 157 [place], [place] [phone] Sore throat Social History Tobacco Use Types Packs/Day Years Used Date Smoking Tobacco: Former Cigarettes 2 - 2011 Electronic Cigarettes Salvatore t: 07/20/2020 Smokeless Tobacco: Never Comments:Social smoker in [facility], pt stopped e-cigs July 2020; [...] Encounter [facility] [place] [address] Rico Roca MD [address] [place] [address] 2024 7:30 AM CDT - 2024 8:[address] [facility] [place] [address] Rico Roca MD [address] [place] [address] right endoscopic carpal tunnel release. 12/20/2024 9:40 AM CDT Office Visit [facility] Medical Group Orthopedic & Sports Medicine - [place] [address] [place] [address] Joselito Alfaro NP [address] [place] [address] 12/20/2024 1:00 PM CDT Office Visit [facility] Medical Group Multispecialty Care - [place] [address] [address] [place] [address] Adela Michelle MD [address] [place] [address] 157 [place] [address] Scheduled Procedures Name Priority Associated Diagnoses Date/Ti [...] documented as of this encounter Care Teams Operations Manager Assistant Relationship Specialty Start Date End Date Naate, Nueki, MD [address] [address] PCP - General INTERNAL MEDICINE 02/02/21 documented as of this encounter
--- OUTSIDE RECORDS SUMMARY | 2024-11-17 14:40 | XMS_ITS | Encounter Summary ---
Author Organization [facility] Address [facility]6 [place] [address] Care Team Providers Care Fruit Packer Name Role Phone Adela Michelle MD Primary Care Provider [phone] Encounter Details Date Type Department Care Team (Late st Contact Info) Description 04/05/2023 MyChart Message Enc [facility] Medical Group Multispecialty Care - [place] [address] [address] [place] [address] Adela Michelle MD [address] [place] [address] 157 [place], [place] [phone] Hi, Social History Tobacco Use Types Packs/Day [...] Description 2024 7:30 AM CDT Hospital Encounter [place] [address] Rico Roca MD [address] [place] [address] 2024 7:30 AM CDT - 2024 8:[address] [place] [address] Rico Roca MD [address] [place] [address] right endoscopic carpal tunnel release. 12/20/2024 9:40 AM CDT Office Visit [facility] Medical Group Orthopedic & Sports Medicine - [place] [address] [place] [address] Joselito Alfaro NP [address] [place] [address] 12/20/2024 1:00 PM CDT Office Visit [facility] Medical Group Multispecialty Care - [place] [address] [address] [place] [address] Adela Michelle MD [address] [place] [address] Scheduled Procedures Name Priority Associated Diagnoses Date/Ti [...] Depression Total Score: 6 03/24/19 3:55 PM LIFE SCIENCE RESEARCH ASSISTANT documented as of this encounter Care Teams Fruit Packer Relationship Specialty Start Date End Date Adela Michelle MD [address] [address] PCP - General INTERNAL MEDICINE 02/02/21 documented as of this encounter
--- OUTSIDE RECORDS SUMMARY | 2024-11-17 14:40 | XMS_ITS | Encounter Summary ---
Author Organization [facility] Address [facility]6 [place] [address] Care Team Providers Care Horizontal Drill Operator Name Role Phone Adela Michelle MD Primary Care Provider [phone] Encounter Details Date Type Department Care Team ([facility] st Contact Info) Description 11/26/2023 MyChart Message Enc [facility] Medical Group Multispecialty Care - [place] [address] [address] [address] [place] [address] Adela Michelle MD [address] [place] [address] 157 [place], [place] [phone] Upcoming visit Social History Tobacco Use Types Packs/Day Years Used Date Smoking Tobacco: Former Cigarettes 2 - 2011 Electronic Cigarettes Salvatore t: 07/20/2020 Smokeless Tobacco: Never Comments:Social smoker in [facility], pt stopped e-cigs July 2020; [...] Encounter [facility] [place] [address] Rico Roca MD [address] [place] [address] 2024 7:30 AM CDT - 2024 8:[address] [place] [address] Rico Roca MD [address] [place] [address] right endoscopic carpal tunnel release. 12/20/2024 9:40 AM CDT Office Visit [facility] Medical Group Orthopedic & Sports Medicine - [place] [address] [place] [address] Joselito Alfaro NP [address] [place] [address] 12/20/2024 1:00 PM CDT Office Visit [facility] Medical Group Multispecialty Care - [place] [address] [address] [place] [address] Adela Michelle MD [facility] [address] Scheduled Procedures Name Priority Associated Diagnoses Date/Ti me RELEASE CARPAL TUNNEL ENDOSCOPIC Carpal tunnel syndrome on right 2024 7:30 AM CDT documented as of this encounter Visit Diagnoses Not on filedocumented in this encounter Additional Health Concerns Assessment Noted Time PHQ-9 Depression Total Score: 14 04/ 024 11:41 AM CDT documented as of this encounter Care Teams Horizontal Drill Operator Relationship Specialty Start Date End Date Adela Michelle MD [address] [place] [address] PCP - General INTERNAL MEDICINE 02/02/21 documented as of this encounter
--- OUTSIDE RECORDS SUMMARY | 2024-11-17 14:40 | XMS_ITS | Encounter Summary ---
Author Organization [facility] Address [facility] [place] [address] Care Team Providers Care Trust Operations Assistant Name Role Phone Adela Michelle MD Primary Care Provider [phone] Encounter Details Date Type Department Care Team (Late st Contact Info) Description 12/06/[address] [facility] Medical Group Multispecialty Care - [place] [address] [address] [place] [address] Adela Michelle MD [address] [place] [address] 157 [place], [place] [phone] Sinus infection Social History Tobacco Use Types [...] Description 2024 7:30 AM CDT Hospital Encounter [place] [address] Rico Roca MD [address] [place] [address] 2024 7:30 AM CDT - 2024 8:[address] [place] [address] Rico Roca MD [address] [place] [address] right endoscopic carpal tunnel release. 12/20/2024 9:40 AM CDT Office Visit [facility] Medical Group Orthopedic & Sports Medicine - [place] [address] [place] [address] Joselito Alfaro NP [address] [place] [address] 12/20/2024 1:00 PM CDT Office Visit [facility] Medical Group Multispecialty Care - [place] [address] [address] [place] [address] Adela Michelle MD [address] [place] [address] Scheduled Procedures Name Priority Associated Diagnoses Date/Ti me RELEASE CARPAL TUNNEL ENDOSCOPIC Carpal tunnel syndrome on right 2024 7:30 AM CDT documented as of this encounter Visit Diagnoses Not on filedocumented in this encounter Additional Health Concerns Assessment Noted Time PHQ-9 Depression Total Score: 14 04/2 024 11:41 AM CDT documented as of this encounter Care Teams Trust Operations Assistant Relationship Specialty Start Date End Date Adela Michelle MD [address] [place] [address] PCP - General INTERNAL MEDICINE 02/02/21 documented as of this encounter
--- OUTSIDE RECORDS SUMMARY | 2024-11-17 14:40 | XMS_ITS | Clinical Summary ---
Author Organization [facility] [address] [place] [address] Care Team Providers Care Spiral Winding Machine Helper Name Role Phone Leonel Wynn NP Primary Care Provider [phone] Allergies No known active allergies Medications QUEtiapine [...] on file Legal Sex Male 7:36 PM [employer] Gender Identity Not on file Sexual Orientation Not on file Obstetrics History Last Filed Vital Signs Vital Sign Reading Time Taken Comments Blood Pressure 132/85 03/08/2019 1:41 PM BANQUET [employer]P COOK Pulse 75 03/08/2019 1:41 PM [employer]QUET [employer]OOK Temperature 36.8 C (98.3 F) 03/08/2019 1:41 PM [employer]QUET [employer]OOK Respiratory Rate 17 03/08/2019 1:41 PM BANQUET [employer]P COOK Oxygen Saturation 99% 03/08/2019 1:41 PM BANQUET [employer]P COOK Inhaled Oxygen Concentration - - Weight 95.3 kg (210 lb) 03/08/2019 1:41 PM BANQUET [employer] COOK Height 182.9 cm (6') 03/08/2019 1:41 PM BANQUET [employer] COOK Body Mass Index 28.48 03/08/2019 1:41 PM BANQUET PREP COOK Plan of Treatment Not on file Insurance [facility] CHOICE PLUS Care Teams Spiral Winding Machine Helper Relationship Specialty [place] [address] [address] PCP - General Family Medicine 03/08/19
--- NOTE | 2024-11-17 14:58 | ED.EYEPROB ---
HPI - Eye Problem General Chief complaint: Eye Problems <Lola Kessler PA-C - Last Filed: 11/17/24 15:58> Stated complaint: eye <Lola Kessler PA-C - Last Filed: 11/17/24 15:58> Time Seen by Provider: 11/17/24 14:02 <Lola Kessler PA-C - Last Filed: 11/17/24 15:58> Source: patient <NERY Padgett Last Filed: 11/17/24 15:58> Mode of arrival: ambulatory <NERY Padgett Last Filed: 11/17/24 15:58> Limitations: no limitations <Lola Kessler PA-C - Last Filed: 11/17/24 15:58> History of Present Illness HPI Narrative: Patient is a 33-year-old male who presents the ED with report of possible foreign body to his right eye. Patient reports he was moving a glass door when the glass shattered and pieces of glass fell back onto his face and he believes into his right eye. He flushed his eye with saline and reported having some improvement of the discomfort afterwards. He does still complain of burning irritation to right lateral eye. Denies any vision changes. Denies L eye symptoms. Does not wear glasses or contacts. <Lola Kessler PA-C - Last Filed: 11/17/24 15:58> Related Data Home medications: Home Medications ?Medication ?Instructions ?Recorded ?Confirmed ?Last Taken ?Type albuterol sulfate 90 mcg/actuation 1 inh inhalation Q4H 12/29/23 07/12/24 Unknown History aerosol inhaler lurasidone 40 mg tablet 40 mg PO DAILY 12/29/23 07/12/24 Unknown History montelukast 10 mg tablet 10 mg PO DAILY 12/29/23 07/12/24 Unknown History naltrexone 50 mg tablet 50 mg PO DAILY 12/29/23 07/12/24 Unknown History omeprazole 20 mg capsule,delayed 20 mg PO DAILY 12/29/23 07/12/24 Unknown History release propranolol 20 mg tablet 20 mg PO Q8H 12/29/23 07/12/24 Unknown History quetiapine 100 mg tablet 100 mg PO QHS 12/29/23 07/12/24 Unknown History <Lola Kessler PA-C - Last Filed: 11/17/24 15:58> Allergies/adverse reactions: Allergies Allergy/AdvReac Type Severity Reaction Status Date / Time No Known Allergies Allergy Verified 11/17/24 13:54 <Lola Kessler PA-C - Last Filed: 11/17/24 15:58> Review of Systems Review of Systems: All systems reviewed & are unremarkable except as noted in HPI. <Lola Kessler PA-C - Last Filed: 11/17/24 15:58> All systems reviewed & are unremarkable except as noted in HPI and below <Lola Kessler PA-C - Last Filed: 11/17/24 15:58> PMFSH Past Medical History Medical History: Medical History Asthma Anxiety Allergies <Lola Kessler PA-C - Last Filed: 11/17/24 15:58> Surgical History Surgical History: Surgical History History of tonsillectomy <Lola Kessler PA-C - Last Filed: 11/17/24 15:58> Family History Family History: Family History Father Depression Diabetes mellitus Asthma Hypertension <Lola Kessler PA-C - Last Filed: 11/17/24 15:58> Social History Social History: Social History Smoking status: Former smoker Alcohol intake: current Alcohol use details: Social Substance use: never Substance use type: does not use <Lola Kessler PA-C - Last Filed: 11/17/24 15:58> Exam Narrative: GENERAL: Well appearing, well-nourished, non-toxic, in no acute distress. HEAD: Normocephalic, atraumatic. EYES: PERRL/EOMI, R conjunctiva slightly injected to sclera at 9oclock region. No obvious FB. No significant drainage. RESPIRATORY: Airway patent, respirations nonlabored. CARDIOVASCULAR: Regular rate and rhythm MUSCULOSKELETAL: Moves all extremities. No gross deformities. SKIN: Warm, dry, normal color. NEURO: A&O X3. Speech clear. PSYCHIATRIC: Appropriate mood and affect. Normal interaction. <Lola Kessler PA-C - Last Filed: 11/17/24 15:58> Course SEALING AND CANCELING MACHINE OPERATOR/PA Physician Supervision This visit was performed by both a physician and an APC. I performed all aspects of the MDM as documented. <Chadwick Strong MD - Last Filed: 11/17/24 16:02> Vital Signs Vital signs: Vital Signs Temperature 97.9 F 11/17/24 13:55 Pulse Rate 86 11/17/24 13:55 Respiratory Rate 20 11/17/24 13:55 Blood Pressure 144/88 H 11/17/24 13:55 Pulse Oximetry 100 11/17/24 13:55 Oxygen Delivery Room Air 11/17/24 13:55 Temperature 97.9 F 11/17/24 13:55 Pulse Rate 86 11/17/24 13:55 Respiratory Rate 20 11/17/24 13:55 Blood Pressure 144/88 H 11/17/24 13:55 Pulse Oximetry 100 11/17/24 13:55 Oxygen Delivery Room Air 11/17/24 13:55 <Lola Kessler PA-C - Last Filed: 11/17/24 15:58> Vital Signs Temperature 97.9 F 11/17/24 13:55 Pulse Rate 86 11/17/24 13:55 Respiratory Rate 20 11/17/24 13:55 Blood Pressure 144/88 H 11/17/24 13:55 Pulse Oximetry 100 11/17/24 13:55 Oxygen Delivery Room Air 11/17/24 13:55 Temperature 97.9 F 11/17/24 13:55 Pulse Rate 86 11/17/24 13:55 Respiratory Rate 20 11/17/24 13:55 Blood Pressure 144/88 H 11/17/24 13:55 Pulse Oximetry 100 11/17/24 13:55 Oxygen Delivery Room Air 11/17/24 13:55 <Chadwick Strong MD - Last Filed: 11/17/24 16:02> MDM - Eye Problem MDM Narrative Medical decision making narrative: Visual acuity intact. Patient denying visual changes. Fluorescein staining with Wood's lamp exam performed and does show small conjunctival abrasion to R lateral sclera at 9oclock region from cornea, as well as horizontal conjunctival abrasion inferior to cornea. No corneal abrasion. No foreign body identified. Patient will be started on ofloxacin eyedrops. Advised utilize these as directed, follow-up with Ophthalmology for further evaluation needed. Given return precautions. Discharged in stable condition. <Lola Kessler PA-C - Last Filed: 11/17/24 15:58> Medical Records Attestation: I reviewed the patient's medical records. <Lola Kessler PA-C - Last Filed: 11/17/24 15:58> Discharge Plan Discharge Clinical Impression: Conjunctival abrasion Qualifiers: Encounter type: initial encounter Laterality: right Qualified Code(s): S05.01XA - Injury of conjunctiva and corneal abrasion without foreign body, right eye, initial encounter <Lola Kessler PA-C - Last Filed: 11/17/24 15:58> Patient Disposition: Home <Lola Kessler PA-C - Last Filed: 11/17/24 15:58> Condition: Stable <Lola Kessler PA-C - Last Filed: 11/17/24 15:58> Instructions: Antibiotic Form, Corneal Abrasion (ED) <Lola Kessler PA-C - Last Filed: 11/17/24 15:58> Additional Instructions: Utilize antibiotic eye drops as prescribed. Avoid rubbing or touching eye. Wash hands frequently. Follow up with eye doctor for further evaluation if needed. Return to the ED if you experience worsening or severe pain, vision changes, or any other symptoms of concern. <Lola Kessler PA-C - Last Filed: 11/17/24 15:58> Patient Language: Micronesian <Lola Kessler PA-C - Last Filed: 11/17/24 15:58> Prescriptions: New ofloxacin 0.3 % drops 2 drp RIGHT EYE QID 5 Days Qty: 5 0RF No Action albuterol sulfate 90 mcg/actuation HFA aerosol inhaler 1 inh inhalation Q4H naltrexone 50 mg tablet 50 mg PO DAILY propranolol 20 mg tablet 20 mg PO Q8H omeprazole 20 mg capsule,delayed release(DR/EC) 20 mg PO DAILY quetiapine 100 mg tablet 100 mg PO QHS lurasidone 40 mg tablet 40 mg PO DAILY Rx Instructions: must administer with food (at least 350 calories) montelukast 10 mg tablet 10 mg PO DAILY <Lola Kessler PA-C - Last Filed: 11/17/24 15:58> Follow-up/Referrals: Naate,MD Adela [Primary Care Provider, Unknown] <Lola Kessler PA-C - Last Filed: 11/17/24 15:58> Time of Disposition: 15:00 <Lola Kessler PA-C - Last Filed: 11/17/24 15:58> 15:00 <Chadwick Strong MD - Last Filed: 11/17/24 16:02>
[2024-11-17] MEDS: OFLOXACIN 0.3% OPHTH SOLN 5 ML BTL 2 DROP RIGHT EYE (15:06)
== END 2024-11-17 15:11 | disposition home or self-care (01) ==
PROVIDERS: Emergency Provider Physician Assistant; PCP Internal Medicine
DX: S05.01XA Injury of conjunctiva and corneal abrasion without foreign body, right eye, initial encounter (principal); J45.909 Unspecified asthma, uncomplicated; F41.9 Anxiety disorder, unspecified; W25.XXXA Contact with sharp glass, initial encounter
CPT/HCPCS: 99283; A9270